=== PATIENT | female | born 1945 | race Caucasian/White ===

== ENCOUNTER → 2021-03-23 14:38 | Outpatient (BNVA) | payer MEDICARE, OTHER, SELFPAY | PROVIDERS: PCP Internal Medicine | DX: N39.0 Urinary tract infection, site not specified (principal); R33.9 Retention of urine, unspecified; Q61.3 Polycystic kidney, unspecified; Z94.0 Kidney transplant status | CPT/HCPCS: 51798; 99212 ==

== ENCOUNTER → 2022-03-22 14:08 | Outpatient (BNVA) | payer MEDICARE, OTHER, SELFPAY | PROVIDERS: PCP Internal Medicine; Visit Provider Urology | DX: N32.81 Overactive bladder (principal); N95.2 Postmenopausal atrophic vaginitis; N39.0 Urinary tract infection, site not specified; Q61.3 Polycystic kidney, unspecified; Z94.0 Kidney transplant status | CPT/HCPCS: 51798; 99212 ==

== ENCOUNTER 2023-03-23 11:06 | Outpatient (AMB) | payer MEDICARE, OTHER, SELFPAY ==
--- NOTE | 2023-03-23 11:08 | A.OFFVIS_ITS ---
Intake Intake Visit Reasons: 1 yr follow up Intake Note: Patient presents today for a 1 year follow-up on Overactive Bladder: Meds- Toviaz, Estradiol & Nitrofurantoin Allergies to Antibiotic- No Known Allergies Blood Thinner- None Hanger Off Required: No Accompanied by: Self / Same As Patient Allergies No Known Allergies Allergy (Verified 03/23/23 11:08) Medication List - Last Reconciled 03/23/23 by Krzysztof Ashby MD brimonidine 0.15% 1 drp ophthalmic (eye) BID cinacalcet 90 mg PO DAILY citalopram 20 mg PO DAILY dorzolamide-timolol 22.3-6.8 mg/mL 1 drp ophthalmic (eye) BID estradiol 0.01%(0.1mg/gram) (Estrace) pea sized amount to urethra 3x week ferrous sulfate 27 mg PO DAILY fesoterodine ER (Toviaz) 8 mg PO DAILY 90 days latanoprost 0.005% 1 drp ophthalmic (eye) BEDTIME lovastatin 20 mg PO DAILY multivitamin 1 tab PO DAILY mycophenolate mofetil 250 mg PO nitrofurantoin macrocrystal 50 mg PO BEDTIME 90 days tacrolimus 4 mg PO BID HPI HPI Comments History of Present Illness Details Belkis is here for follow-up. She has a h/o adult polycystic disease, and is s/p live kidney transplant 06/08/2010. She is on nitrofurantoin 50 mg daily, suppressive antibiotic therapy due to recurrent UTIs. Also prescribed and uses the vaginal estrogen cream. She states she has been doing well. She denies any irritative voiding symptoms. Denies dysuria, denies hematuria. She is prescribed Toviaz 8 mg which she takes as needed for overactive bladder symptoms of urgency and urge incontinence. She reports the medication is working well for her however she has significant dry mouth, today she states that she has also noted drowsiness while on the medication. In regard to her transplant she is on immunosuppressive medications and follows with Nephrology and states that her labs have been stable. I have discussed today that I want to try a different medication that is in the separate class and should not cause the symptoms noted above. Myrbetriq was my 1st choice but the patient states she has already tried this medication and did work well to relieve her bladder symptoms. I will arrange for samples of gemtesa 75 mg daily. Will continue Estrace cream and daily nitrofurantoin 50 mg. Follow-up in 6 months [facility] Medical History Urinary retention Social History Patient Tobacco Use Status: Never used Tobacco Review of Systems Const All systems reviewed & are unremarkable except as noted in HPI and below Reports no additional complaints Eyes Reports no additional complaints ENT Denies neck pain Card Denies leg edema Resp Denies cough GI Denies constipation Reports no additional complaints Musc Reports no additional complaints and Denies neck pain Skin/Breast Denies rash and Denies unusual bruising Neuro Reports no additional complaints Psych Reports no additional complaints Endo Reports no additional complaints Tye/Lymph Reports no additional complaints Aller/Immun Reports no additional complaints Physical Exam Const General: cooperative, healthy appearing and no acute distress Orientation/consciousness: patient oriented x3 HEENT Head: Yes normal to inspection, Yes normocephalic and Yes atraumatic Eyes Conjunctivae: conjunctivae normal Neck Neck: Yes normal visual inspection and Yes trachea midline Chest Chest palpation & inspection: normal inspection of the chest Resp Effort & Inspection: normal respiratory effort GI Inspection: Yes normal to inspection Neuro General: patient oriented x3 Psych Appearance: grossly normal Results AMB Urinalysis, Automated UA Leukoctes 500 Kevin/uL Last Edit by ADELINA Huang on 03/23/23 12:12 3+ Misha Landeros 03/23/23 12:12 UA Nitrite Negative Last Edit by ADELINA Huang on 03/23/23 12:12 UA Urobilinogen 0.2 mg/dL Last Edit by ADELINA Huang on 03/23/23 12:1 2 UA Protein 15 mg/dL Last Edit by ADELINA Huang on 03/23/23 12:12 UA pH 6.0 Last Edit by ADELINA Huang on 03/23/23 12:12 UA Blood 0 Darian/uL Last Edit by ADELINA Huang on 03/23/23 12:12 UA Specific [place] 1.025 Last Edit by ADELINA Huang on 03/23/23 12: 12 UA Ketone Negative Last Edit by ADELINA Huang on 03/23/23 12:12 UA Bilirubin 0 mg/dL Last Edit by JAIRON HuagnA on 03/23/23 12:12 UA Glucose 0 mg/dL Last Edit by ADELINA Huang on 03/23/23 12:12 Results Reviewed Results Reviewed: Laboratory Last Values Urine pH (Auto) 6.0 03/23/23 12:09 Specific [place] (Auto) 1.025 03/23/23 12:09 Urine Protein (Auto) 15 mg/dL 03/23/23 12:09 Glucose (UA)(Auto) 0 mg/dL 03/23/23 12:09 Urine Ketones (Auto) Negative 03/23/23 12:09 Urine Blood (Auto) 0 Darian/uL 03/23/23 12:09 Urine Nitrite (Auto) Negative 03/23/23 12:09 Urine Bilirubin (Auto) 0 mg/dL 03/23/23 12:09 Urine Urobilinogen (Auto) 0.2 mg/dL 03/23/23 12:09 Leukocyte Esterase (Auto) 500 Kevin/uL 03/23/23 12:09 Assessment & Plan Assessment & Plan (1) OAB (overactive bladder): Code(s): N32.81 - Overactive bladder (2) Vaginal atrophy: Code(s): N95.2 - Postmenopausal atrophic vaginitis (3) Recurrent UTI: Code(s): N39.0 - Urinary tract infection, site not specified (4) Kidney transplant recipient: Code(s): Z94.0 - Kidney transplant status (5) Polycystic kidney disease: Code(s): Q61.3 - Polycystic kidney, unspecified Plan I will arrange for samples of gemtesa 75 mg daily. Will continue Estrace cream and daily nitrofurantoin 50 mg. Follow-up in 6 months Orders: Orders AMB Urinalysis Automated Today Z13.9 - Encounter for screening, unspecified Patient Instructions: The patient had an opportunity to ask questions regarding treatment plan. All questions were answered. Laboratory studies were discussed and reviewed in detail. No major barriers to understanding were identified. The patient expressed understanding and agreement with the above treatment plan. The patient is aware they should contact our office by phone for worsening of their current condition or the appearance of new symptoms. Compliance is encouraged with any medications and followup testing that is ordered. It is a privilege to be allowed the opportunity to participate in the urologic care of your patient. If you have any questions or concerns regarding treatment for the above conditions please do not hesitate to contact me. The office telephone contact is [phone]. This note is constructed in part using voice recognition software. While every effort has been made to ensure accuracy family nurse practitioner errors may have been included. Yours sincerely, Krzysztof Ashby MD Coding Level of Care Code Est Pt Level 4 (58225) Diagnoses OAB (overactive bladder) N32.81 Vaginal atrophy N95.2 Recurrent UTI N39.0 Kidney transplant recipient Z94.0 Polycystic kidney disease Q61.3
== END 2023-03-23 12:25 | disposition home or self-care (01) ==
PROVIDERS: PCP Internal Medicine; Visit Provider Urology
DX: N32.81 Overactive bladder (principal); N95.2 Postmenopausal atrophic vaginitis; N39.0 Urinary tract infection, site not specified; Z94.0 Kidney transplant status; Q61.3 Polycystic kidney, unspecified; Z13.9 Encounter for screening, unspecified
CPT/HCPCS: 99214

== ENCOUNTER → 2023-03-23 11:06 | Outpatient (BNVA) | payer MEDICARE, OTHER, SELFPAY | PROVIDERS: Visit Provider Urology | DX: N32.81 Overactive bladder (principal); N95.2 Postmenopausal atrophic vaginitis; N39.0 Urinary tract infection, site not specified; Q61.3 Polycystic kidney, unspecified; Z94.0 Kidney transplant status | CPT/HCPCS: 81003; 99212 ==

== ENCOUNTER 2024-08-25 10:03 | Outpatient (AMB) | payer MEDICARE, OTHER, SELFPAY ==
--- OUTSIDE RECORDS SUMMARY | 2024-08-25 11:12 | XMS_ITS | Encounter Summary ---
Author Organization [facility], Address [address] [place] [address] Phone Care Team Providers Care Head Of Sales Promotion Name Role Phone Stacy Awan MD Primary Care Provider [phone] Reason for Visit * Reason Comments Med Refill Encounter Details Date Type Department Care Team (Late st Contact Info) Description 03/29/2021 Refill [facility] [address] [place] [phone] Romeo Dozier PA Social History Tobacco Use Types Packs/Day Years Used Date Smoking Tobacco: Never Alcohol Use Standard Drinks/Week Comments Yes 0 (1 standard drink = 0.6 oz pure alcohol) Alcoholic Drinks/day: Occasional social drink Comments Unknown Sex and Gender Information Value Date Recorded Sex Assigned at Not on file Legal Sex Female 4:34 PM EST Gender Identity Not on file Sexual Orientation Not on file documented as of this encounter Plan of Treatment Upcoming Encounters Date Type Department Care Team (Late st Contact Info) Description 09/05/2024 10:00 AM EDT Office Visit [facility] [address] [place] [phone] Edgar Aguilar MD [address] [place] [address] [place] [phone] documented as of this encounter Visit Diagnoses Not on filedocumented in this encounter Care Teams Head Of Sales Promotion Relationship Specialty Start Date End Date Stacy Awan MD [address] [place] [id number] PCP - General Internal Medicine 01/23/23 documented as of this encounter
--- OUTSIDE RECORDS SUMMARY | 2024-08-25 11:12 | XMS_ITS | Encounter Summary ---
Author Organization [facility] Address [address] [place] [address] Care Team Providers Care Chicken Buyer Name Role Phone Ant Brewer NP Primary Care Provider [phone] Encounter Details Date Type Department Care Team (Late st Contact Info) Description 07/09/2024 Lab Requisition [facility] - Main Lab [address] [facility] [place] [phone] Ant Brewer NP [facility] [address] [place] [address] Urinary tract infection, site not specified Social History Tobacco Use Types Packs/Day Years Used Date Smoking Tobacco: Former Smokeless Tobacco: Never Alcohol Use Standard Drinks/Week Comments Yes 0 (1 standard drink = 0.6 oz pur e alcohol) Comments Unknown Sex and Gender Information Value Date Recorded Sex Assigned at Not on file Legal Sex Female 12:44 AM EST Gender Identity Not on file Sexual Orientation Not on file documented as of this encounter Plan of Treatment Not on file documented as of this encounter Procedures Procedure Name Priority Date/Time Associated Diagnosis Comments URINALYSIS WITH REFLEX MICROSCOPIC AND CULTURE Routine 07/08/2024 2:00 PM EST Urinary tract infection, site not specified [place] URINE CULTURE TUBE Routine 07/08/2024 2:00 PM EST Urinary tract infection, site not specified URINALYSIS WITH REFLEX MICROSCOPIC AND CULTURE Routine 07/08/2024 2:00 PM EST Urinary tract infection, site not specified CULTURE URINE Routine 07/08/2024 2:00 PM EST Urinary tract infection, site not specified documented in this encounter Results * (ABNORMAL) Culture urine (07/08/2024 2:00 PM EST) Culture, Urine >100,000 CFU/mL Escherichia coli(A) JENNY 07/11/2024 9:49 AM EST [facility] Urine Urine specimen obtained by clean catch procedure / Unknown 07/08/2024 2:00 PM EST 07/09/2024 10:17 AM EST Narrative Organism Antibiotic Method Susceptibility Escherichia coli Amoxicillin/Clavulanate JENNY 8 ug/ml: Susceptible Escherichia coli Ampicillin/Sulbactam JENNY 16 ug/ml: Intermediate Escherichia coli Piperacillin/Tazobactam JENNY <=4 ug/ml: Susceptible Escherichia coli Cefazolin (Urine) JENNY 2 ug/ml: Susceptible Escherichia coli Cefoxitin JENNY <=4 ug/ml: Susceptible Escherichia coli Ceftazidime JENNY <=0.5 ug/ml: Susceptible Escherichia coli Ceftriaxone JENNY <=0.25 ug/ml: Susceptible Escherichia coli Cefepime JENNY <=0.12 ug/ml: Susceptible Escherichia coli Meropenem JENNY <=0.25 ug/ml: Susceptible Escherichia coli Amikacin JENNY 2 ug/ml: Susceptible Escherichia coli Gentamicin JENNY <=1 ug/ml: Susceptible Escherichia coli Ciprofloxacin JENNY 0.5 ug/ml: Intermediate Escherichia coli Levofloxacin JENNY 1 ug/ml: Intermediate Escherichia coli Nitrofurantoin JENNY <=16 ug/ml: Susceptible Escherichia coli Trimethoprim/Sulfamethoxazole JENNY <=20 ug/ml: Susceptible Ant Brewer NP LAB MICROBIOLOGY - GENERAL ORDER MELISSA Final Result [facility] [address] [place] [address], [place] [phone] * (ABNORMAL) Urinalysis with reflex microscopic and culture (07/08/2024 2:00 PM EST) Pathologist [facility] [place] Specific [place] Urine 1.009 1.003 - 1.030 LAB URINALYSIS - AUTOMATED METHOD 07/09/2024 10:17 AM EST [facility] pH, Urine 6.0 5.0 - 8.0 pH LAB URINALYSIS - AUTOMATED METHOD 07/09/2024 10:17 AM [facility] Leukocytes, Urine Large(A) Negative LAB URINALYSIS - AUTOMATED METHOD 07/09/2024 10:17 AM [facility] Nitrite, Urine Negative Negative LAB URINALYSIS - AUTOMATED METHOD 07/09/2024 10:17 AM [facility] Protein, Urine Trace <=Trace mg/dL LAB URINALYSIS - AUTOMATED METHOD 07/09/2024 10:17 AM [facility] Glucose, Urine Negative Negative mg/dL LAB URINALYSIS - AUTOMATED METHOD 07/09/2024 10:17 AM [facility] Ketones, Urine Negative Negative mg/dL LAB URINALYSIS - AUTOMATED METHOD 07/09/2024 10:17 AM [facility] Urobilinogen, Urine 0.2 0.2 - 1.0 mg/dL LAB URINALYSIS - AUTOMATED METHOD 07/09/2024 10:17 AM [facility] Bilirubin, Urine Negative Negative LAB URINALYSIS - AUTOMATED METHOD 07/09/2024 10:17 AM [facility] Blood, Urine Negative Negative LAB URINALYSIS - AUTOMATED METHOD 07/09/2024 10:17 AM [facility] RBC, Urine 1.9 0 - 4 /HPF LAB URINALYSIS - AUTOMATED METHOD 07/09/2024 10:17 AM [facility] WBC, Urine 186.4(H) 0 - 4 /HPF LAB URINALYSIS - AUTOMATED METHOD 07/09/2024 10:17 AM [facility] Squamous Epithelial, Urine 12 0 - 60 /LPF LAB URINALYSIS - AUTOMATED METHOD 07/09/2024 10:17 AM [facility] Bacteria, Urine Many(A) Negative /HPF LAB URINALYSIS - AUTOMATED METHOD 07/09/2024 10:17 AM [facility] Hyaline Casts, Urine 0.41 0 - 3 /LPF LAB URINALYSIS - AUTOMATED METHOD 07/09/2024 10:17 AM EST [facility] Urine Urine specimen obtained by clean catch procedure / Unknown 07/08/2024 2:00 PM EST 07/09/2024 9:25 AM EST us Ant Brewer NP LAB URINE ORDERABLES Final Resul t Performing Organization Address City/[facility]/ZIP Co de Phone Number [facility] [address] [place] [address], [place] [phone] * Pearson urine culture tube (07/08/2024 2:00 PM EST) Extra Tube Hold for add-ons. 07/09/2024 11:02 AM EST [facility] Comment:Auto resulted. Urine Urine specimen obtained by clean catch procedure / Unknown 07/08/2024 2:00 PM EST 07/09/2024 9:25 AM EST us Ant Brewer NP LAB URINE ORDERABLES Final Resul t Performing Organization Address [facility] Co de Phone Number [facility] [address] [place] [address], [place] [phone] documented in this encounter Visit Diagnoses Diagnosis Urinary tract infection, site not specified documented in this encounter Care Teams Chicken Buyer Relationship Specialty Start Date End Date Ant Brewer NP [facility] [address] [place] [address] PCP - General Nurse Practitioner 07/09/24 documented as of this encounter
--- OUTSIDE RECORDS SUMMARY | 2024-08-25 11:12 | XMS_ITS | Encounter Summary ---
Author Organization [facility], Address [address] [place] [address] Phone Care Team Providers Care Automotive Electrical Helper Name Role Phone Stacy Awan MD Primary Care Provider [phone] Encounter Details Date Type Department Care Team (Late st Contact Info) Description 02/02/2022 Documentation Only [facility], [address] [place] [address] Edgar Aguilar MD [address] [place] [address] [place] [address] Social History Tobacco Use Types Packs/Day Years [...] Visit [facility] [address] [place] [address] Edgar Aguilar MD [address] [place] [address] [place] [address] documented as of this encounter Visit Diagnoses Not on filedocumented in this encounter Care Teams Automotive Electrical Helper Relationship Specialty Start Date End Date Stacy Awan MD [address] [place] [address] PCP - General Internal Medicine 01/23/23 documented as of this encounter
--- OUTSIDE RECORDS SUMMARY | 2024-08-25 11:12 | XMS_ITS | Encounter Summary ---
Author Organization [facility], Address [address] [place] [address] Phone Care Team Providers Care Privacy Analyst Name Role Phone Stacy Awan MD Primary Care Provider [phone] Reason for Visit * Reason Comments Med Refill Encounter Details Date Type Department Care Team (Late st Contact Info) Description 06/29/2022 Refill [facility] [address] [place] [phone] Romeo Dozier PA Social History Tobacco Use [...] Visit [facility] [address] [place] [phone] Edgar Aguilar MD [address] [place] [address] [place] [phone] documented as of this encounter Visit Diagnoses Not on filedocumented in this encounter Care Teams Privacy Analyst Relationship Specialty Start Date End Date Stacy Awan MD [address] [place] [id number] PCP - General Internal Medicine 01/23/23 documented as of this encounter
--- OUTSIDE RECORDS SUMMARY | 2024-08-25 11:12 | XMS_ITS | Encounter Summary ---
Author Organization [facility], Address [address] [place] [address] Phone Care Team Providers Care Offset Platemaker Name Role Phone Stacy Awan MD Primary Care Provider [phone] Encounter Details Date Type Department Care Team (Late st Contact Info) Description 02/05/2024 Documentation Only [facility], [address] [place] [address] [place] [address] [place] [address] Social History Tobacco Use Types Packs/Day Years [...] Visit [facility] [place] [address] [place] [address] Edgar Aguilar MD [address] [facility] [place] [address] documented as of this encounter Visit Diagnoses Not on filedocumented in this encounter Care Teams Offset Platemaker Relationship Specialty Start Date End Date Stacy Awan MD [address] [place] [address] PCP - General Internal Medicine 01/23/23 documented as of this encounter
--- OUTSIDE RECORDS SUMMARY | 2024-08-25 11:12 | XMS_ITS | Clinical Summary ---
Author Organization [address] Address [address] [place] [address] Phone Care Team Providers Care Lifestyle Block Farmer Name Role Phone Ant Brewer NP Primary Care Provider [phone] Encounters Date Type Department Care Team Description 07/09/2024 Lab Requisition [facility] - Main Lab [address] [place] [id number] Ant Brewer NP Urinary tract infection, site not specified from Last 3 Months Surgical History Surgery Date Site/Laterality Comments SALPINGOOPHORECTOMY Right PROCEDURE: [facility] LAPAROSCOPY W/RMVL ADNEXAL STRUCTURES; COMMENT: cystectomy OTHER SURGICAL HISTORY 2009 PROCEDURE: [facility] RENAL ALTRNSPLJ IMPLTJ GRF W/O RECORDS MANAGEMENT ASSISTANT NEPHRECTOMY; COMMENT: X2 BACK SURGERY 2008 PROCEDURE: HISTORICAL BACK SURGERY COLONOSCOPY 08/25/05 PROCEDURE: HISTORICAL COLONOSCOPY; COMMENT: tics OTHER SURGICAL HISTORY 09/08/15 PROCEDURE: COLON CA SCRN NOT HI RSK IND; COMMENT: tics; would not repeat OTHER SURGICAL HISTORY Bilateral PROCEDURE: HISTORICAL GLAUCOMA OTHER SURGICAL HISTORY PROCEDURE: [facility] PERITONEAL DIALYSIS PLAN DOCUMENTED OTHER SURGICAL HISTORY PROCEDURE: MRI ABD W/WO CONTRAST; COMMENT: MRA of brain yearly Medical History Medical History Date Comments Spinal stenosis, lumbar amanda on, without neurogenic claudication 11/19/2007 DX:Spinal stenosis, светлана mbar region, without neurogenic claudication Polycystic kidney disease DX:Logan ycystic kidney disease Family History Medical History Relation Name Comments Hypertension Brother 1 Other: Other Brother 1 polycystic kidn ey disease, dialysis Other: Other Brother 2 polycystic Kidn ey disease, kidney transplant mental issues Other: Other Brother 3 Other: Other Mother polycystic kidn ey disease Breast cancer Neg Hx Colon cancer Neg Hx Ovarian cancer Neg Hx Relation Name Status Comments Brother 1 2,ONE , POLYSCYSTIC KIDNEY Brother 2 Brother 3 Alive Father NOT SURE Mother CRF Social History Tobacco Use Types Packs/Day Years Used Date Smoking Tobacco: Former Smokeless Tobacco: Never Alcohol Use Standard Drinks/Week Comments Yes 0 (1 standard drink = 0.6 oz pur e alcohol) Comments Unknown Sex and Gender Information Value Date Recorded Sex Assigned at Not on file Legal Sex Female 12:44 AM EST Gender Identity Not on file Sexual Orientation Not on file Obstetrics History Plan of Treatment Health Maintenance Due Date Last Done Comments Pneumococcal Vaccine: 50+ Years (3 of 3 - PCV) 09/08/2015 09/07/2014, 06/07/2007 RSV Immunization Patients 60+ Years Old (1 - 1-dose 75+ series) 01/30/2019 Cholesterol Screening (Lipid Panel) 05/14/2022 Depression Screening 05/14/2022 Falls Risk Assessment 05/14/2022 Medicare Annual Wellness Visit 05/14/2022 Osteoporosis Screening (Bone Density Screening) 05/14/2022 Social Influencers of Health Screening 05/14/2022 COVID-19 Vaccine ( season) 2024 08/29/2021, 01/28/2021, 08/02/2020, Additional history exists Influenza Vaccine (#1) 2024 , 04/04/2021, 02/17/2020, Additional history exists DTaP,Tdap,and Td Vaccines (2 - Td or Tdap) 11/15/2026 11/15/2016 Hepatitis B Vaccines Completed 04/24/2005, 11/17/2004, 10/20/2004 Zoster Vaccines Completed 03/25/2019, 09/28/2018 HIB Vaccines Aged Out No longer eligi ble based on patient's age to complete this topic HPV Vaccines Aged Out No longer eligi ble based on patient's age to complete this topic Hepatitis A Vaccines Aged Out No long er eligible based on patient's age to complete this topic IPV Vaccines Aged Out No longer eligi ble based on patient's age to complete this topic MMR Vaccines Aged Out No longer eligi ble based on patient's age to complete this topic Meningococcal ACWY Vaccine Aged Out N o longer eligible based on patient's age to complete this topic Meningococcal B Vacine Aged Out No lo nger eligible based on patient's age to complete this topic RSV Immunization Patients Under 20 months Aged Out No longer eligible based on patient's age to complete this topic Varicella Vaccines Aged Out No longer eligible based on patient's age to complete this topic Procedures Procedure Name Priority Date/Time Associated Diagnosis [...] EST Urinary tract infection, site not specified from Last 3 Months Results * (ABNORMAL) Urinalysis with reflex microscopic and culture (07/08/2024 2:00 PM EST) Specific [place] Urine 1.009 1.003 - 1.030 LAB URINALYSIS - AUTOMATED METHOD 07/09/2024 10:17 AM [facility] pH, Urine 6.0 5.0 - 8.0 pH LAB URINALYSIS - AUTOMATED METHOD 07/09/2024 10:17 AM [facility] Leukocytes, Urine Large(A) Negative LAB URINALYSIS - AUTOMATED METHOD 07/09/2024 10:17 AM [facility] Nitrite, Urine Negative Negative LAB URINALYSIS - AUTOMATED METHOD 07/09/2024 10:17 AM [facility] Protein, Urine Trace <=Trace mg/dL LAB URINALYSIS - AUTOMATED METHOD 07/09/2024 10:17 AM [facility] Glucose, Urine Negative Negative mg/dL LAB URINALYSIS - AUTOMATED METHOD 07/09/2024 10:17 AM [facility] Ketones, Urine Negative Negative mg/dL LAB URINALYSIS - AUTOMATED METHOD 07/09/2024 10:17 AM [facility] Urobilinogen, Urine 0.2 0.2 - 1.0 mg/dL LAB URINALYSIS - AUTOMATED METHOD 07/09/2024 10:17 AM [facility] Bilirubin, Urine Negative Negative LAB URINALYSIS - AUTOMATED METHOD 07/09/2024 10:17 AM [facility] Blood, Urine Negative Negative LAB URINALYSIS - AUTOMATED METHOD 07/09/2024 10:17 AM [facility] RBC, Urine 1.9 0 - 4 /HPF LAB URINALYSIS - AUTOMATED METHOD 07/09/2024 10:17 AM [facility] WBC, Urine 186.4(H) 0 - 4 /HPF LAB URINALYSIS - AUTOMATED METHOD 07/09/2024 10:17 AM [facility] Squamous Epithelial, Urine 12 0 - 60 /LPF LAB URINALYSIS - AUTOMATED METHOD 07/09/2024 10:17 AM [facility] Bacteria, Urine Many(A) Negative /HPF LAB URINALYSIS - AUTOMATED METHOD 07/09/2024 10:17 AM [facility] Hyaline Casts, Urine 0.41 0 - 3 /LPF LAB URINALYSIS - AUTOMATED METHOD 07/09/2024 10:17 AM [facility] Urine Urine specimen obtained by clean catch procedure / Unknown 07/08/2024 2:00 PM EST 07/09/2024 9:25 AM EST us Ant Breewr NP LAB URINE ORDERABLES Final Resul t [facility] [address] [place] [address], * Pearson urine culture tube (07/08/2024 2:00 PM EST) Extra Tube Hold for add-ons. 07/09/2024 11:02 AM EST [facility] Comment:Auto resulted. Urine Urine specimen obtained by clean catch procedure / Unknown 07/08/2024 2:00 PM EST 07/09/2024 9:25 AM EST us Ant Brewer NP LAB URINE ORDERABLES Final Resul t [facility] [address] [place] [address], * (ABNORMAL) Culture urine (07/08/2024 2:00 PM EST) Culture, Urine >100,000 CFU/mL Escherichia coli(A) JENNY 07/11/2024 9:49 AM EST [facility] Urine Urine specimen obtained by clean [...] Escherichia coli Trimethoprim/Sulfamethoxazole JENNY <=20 ug/ml: Susceptible us Ant Brewer NP LAB MICROBIOLOGY - GENERAL ORDER MELISSA Final Result [facility] [address] [place] [address], [place] [phone] from Last 3 Months Insurance MEDICARE Care Teams Lifestyle Block Farmer Relationship Specialty Start Date End Date Ant Brewer NP [facility] [address] [place] [address] PCP - General Nurse Practitioner 07/09/24
--- OUTSIDE RECORDS SUMMARY | 2024-08-25 11:12 | XMS_ITS | Clinical Summary ---
Author Organization [facility], Address [address] [place] [address] [place] [address] Phone Care Team Providers Care Navigating Officer Name Role Phone Stacy Awan MD Primary Care Provider [phone] Allergies No known active allergies Medications brimonidine (ALPHAGAN P) 0.1 % solution Administer 1 drop into both eyes 2 (two) times a day Active dorzolamide-timolol (COSOPT) 22.3-6.8 MG/ML ophthalmic solution 05/27/20 19 Active estradiol (ESTRACE) 0.1 MG/GM vaginal cream Insert into the vagina 3 (three) times a week Active ferrous sulfate 325 (65 Fe) MG EC tablet Take 325 mg by mouth Active latanoprost (XALATAN) 0.005 % ophthalmic solution 05/29/20 19 Active nitrofurantoin (MACRODANTIN) 50 MG capsule Take 1 capsule by mouth at bed time Active Cholecalciferol (VITAMIN D3) 25 MCG (1000 UT) capsule Take 1 capsule by mouth 1 (one) time each day Active Multiple Vitamins-Minerals (MULTIVITAMIN ADULT PO) Take 1 capsule by mouth 1 (one) time each day Active lovastatin (MEVACOR) 20 MG tablet Take 1 tablet (20 mg total) by mouth 1 (one) time each day 90 tablet 3 09/20/19 24 Active cinacalcet (SENSIPAR) 90 MG tablet TAKE 1 TABLET BY MOUTH EVERY DAY 30 tablet 11 11/30/19 24 Active cetirizine (ZyrTEC) 10 MG tablet Take 1 tablet (10 mg total) by mouth 1 (one) time each day 90 tablet 3 01/14/20 24 Active Gemtesa 75 MG tablet Take 1 tablet by mouth 1 (one) time each day 01/01/20 24 Active amoxicillin (AMOXIL) 500 MG capsule Take 4 tablets 1 hour prior to dental work 4 capsule 05/15/20 24 Active tacrolimus (PROGRAF) 1 MG capsuleIndications:C hronic kidney disease, stage 2 (mild),History of renal transplant,History of immunosuppressive therapy Take 1 capsule (1 mg total) by mouth in the morning and 1 capsule (1 mg total) in the evening. 180 capsule 3 06/23/19 25 026 Active mycophenolate (CELLCEPT) 250 MG capsule TAKE 1 CAPSULE BY MOUTH IN THE MORNING AND 1 CAPSULE IN THE EVENING. 180 capsule 3 07/10/19 25 Active tacrolimus (Prograf) 0.5 MG capsule Take 1 capsule (0.5 mg total) by mouth 1 (one) time each day in the morning 90 capsule 3 07/22/19 25 026 Active citalopram (CeleXA) 20 MG tablet Take 1 tablet (20 mg total) by mouth 1 (one) time each day 90 tablet 3 08/26/19 25 026 Active citalopram (CeleXA) 20 MG tablet Take 1 tablet (20 mg total) by mouth 1 (one) time each day 90 tablet 3 07/10/19 24 025 Discontin ued(Reord er (does not appear on AVS)) Active Problems Problem Noted Date Diagnosed Date Frequent fecal incontinence 06/24/2021 Stage 3a chronic kidney disease 12/26/2019 Overview (06/14/2020): Update for Diagnosis Load 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 06/21 Chronic kidney disease, stage 2 (mild) 0 History of immunosuppressive therapy 06/21/2019 History of renal transplant 06/21/2019 Hyperlipidemia 06/21/2019 Intracranial aneurysm 04/24/2008 Overview (06/21/2019): Gets mra every 2 years per pt and sees dr bowman for that MRA by dr villeda since people with pckd have aneurysm.pt has 3 and she has been referd to [facility] for coiling 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 Diverticulitis of colon 12/26/2005 Iron deficiency anemia 11/23/2005 Overview (06/21/2019): On epo shots by dr graham Polycystic kidney, unspecified type 11/23/2005 Overview (06/21/2019): S/p kidney transplant Resolved Problems Problem Noted Date Diagnosed Date Resolved Date Mild depression 03/25/2021 06/22/2021 Essential hypertension 06/26/201906/17 Encounters Date Type Department Care Team Description 07/22/2024 [facility] [address] [place] [address] Juanita Stevens, RN tacro dose change 07/14/2024 [facility] [address] [place] [address] Sarah Westfall MA 07/09/2024 [facility] [address] [place] [address] Romeo Dozier PA 06/23/2024 [facility] [address] [place] [address] Juanita Stevens, MARIO tacro dose adjustment 06/13/2024 10:45 AM EST Office [facility] [address] [place] [address] Romeo Dozier PA History of renal transplant (Primary Dx); History of immunosuppressive therapy; Stage 3a chronic kidney disease (HCC) 06/13/2024 [facility] [address] [place] [address] Juanita Stevens, RN rpt tacro level from Last 3 Months Immunizations Name Administration Dates Next Due Hep B, Unspecified 04/24/2005,11/17/2004, 005 Hepatitis B 04/24/2005,11/17/2004,10/20/2004 Influenza Split High Dose Pr eservative Free IM 02/17/2020,03/20/2018 Influenza TIV (IM) 03/09/2015,04/20/2014 Influenza, MDCK, Quadrivalen t, with preservative 03/01/2017 Moderna SARS-COV-2 08/26/2021 Pfizer SARS-COV-2 08/29/2021, 1,08/02/2020,07/11 Pneumococcal Polysaccharide 03/04/2015, 5,06/07/2007 Shingrix 03/25/2019,09/28/2018 Tdap 11/15/2016 Zoster 11/28/2018,09/12/2018 Family History Medical History Relation Comments Autosomal Dominant Polycystic Kidney Disease Mot her Heart disease Mother Hypertension Mother Kidney disease Mother pkd Stroke Mother Autosomal Dominant Polycystic Kidney Disease Sib ling 1 Diabetes Sibling 1 Kidney disease Sibling 1 3 siblings Kidney disease Sibling 2 3 pkd Autosomal Dominant Polycystic Kidney Disease Sib ling 3 Relation Status Comments Father Mother Sibling 1 Sibling 2 Sibling 3 Social History Tobacco Use Types Packs/Day Years Used Date Smoking Tobacco: Never Tobacco Cessation:Counseling Given: Not Answered Alcohol Use Standard Drinks/Week Comments Yes 0 (1 standard drink = 0.6 oz pure alcohol) Alcoholic Drinks/day: Occasional social drink Comments Unknown Sex and Gender Information Value Date Recorded Sex Assigned at Not on file Legal Sex Female 4:34 PM EST Gender Identity Not on file Sexual Orientation Not on file Last Filed Vital Signs Vital Sign Reading Time Taken Comments Blood Pressure 102/62 06/13/2024 11:04 AM EST Pulse 77 04/22/2019 12:00 PM EST Temperature - - Respiratory Rate 16 04/22/2019 12:0 0 PM EST Oxygen Saturation - - Inhaled Oxygen Concentration - - Weight 67.5 kg (148 lb 12.8 oz) 024 10:30 AM EDT Height 162.6 cm (5' 4 ) 02/19/2024 10:3 0 AM EDT Body Mass Index 25.54 02/19/2024 10:30 AM EDT Plan of Treatment Upcoming Encounters Date Type Department Care Team (Late st Contact Info) Description 09/05/2024 10:00 AM EDT [facility] [address] [place] [address] Edgar Aguilar MD [address] [place] [address] [place] [id number] Health Maintenance Due Date Last Done Comments Pneumococcal Vaccine: 65+ Years (3 of 3 - PCV) 03/04/2016 03/04/2015, 09/07/2014, 06/07/2007 Influenza Vaccine (#1) 2024 0, 03/20/2018, 03/01/2017, Additional history exists Hepatitis B Vaccine Aged Out 04/24/2005, 04/24/2005, 11/17/2004, Additional history exists No longer eligible based on patient's age to complete this topic Procedures Procedure Name Priority Date/Time Associated Diagnosis Comments TACROLIMUS LEVEL Routine 07/14/2024 12:1 7 PM EST Chronic kidney disease, stage 2 (mild) History of renal transplant History of immunosuppressive therapy TACROLIMUS LEVEL Routine 06/27/2024 10:1 3 AM EST Chronic kidney disease, stage 2 (mild) History of renal transplant History of immunosuppressive therapy TACROLIMUS LEVEL Routine 06/17/2024 11:1 1 AM EST History of renal transplant History of immunosuppressive therapy Stage 3a chronic kidney disease (HCC) REFLEXIVE URINE CULTURE (HC) Routine 06/09/2024 2:41 PM EST MYCOPHENOLIC ACID AND METABO. 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, not otherwise specified (HCC) Vitamin D deficiency, not otherwise specified Other iron deficiency anemia Chronic gout with tophus, not otherwise specified Hypomagnesemia Poor glycemic control Proteinuria, not otherwise specified TACROLIMUS LEVEL 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, not otherwise specified (HCC) Vitamin D deficiency, not otherwise specified Other iron deficiency anemia Chronic gout with tophus, not otherwise specified Hypomagnesemia Poor glycemic control Proteinuria, not otherwise specified PROTEIN / CREATININE RATIO, URINE 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, not otherwise specified (HCC) Vitamin D deficiency, not otherwise specified Other iron deficiency anemia Chronic gout with tophus, not otherwise specified Hypomagnesemia Poor glycemic control Proteinuria, not otherwise specified URINALYSIS, COMPLETE 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, not otherwise specified (HCC) Vitamin D deficiency, not otherwise specified Other iron deficiency anemia Chronic gout with tophus, not otherwise specified Hypomagnesemia Poor glycemic control Proteinuria, not otherwise specified HEMOGLOBIN A1C 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, not otherwise specified (HCC) Vitamin D deficiency, not otherwise specified Other iron deficiency anemia Chronic gout with tophus, not otherwise specified Hypomagnesemia Poor glycemic control Proteinuria, not otherwise specified ALT 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, not otherwise specified (HCC) Vitamin D deficiency, not otherwise specified Other iron deficiency anemia Chronic gout with tophus, not otherwise specified Hypomagnesemia Poor glycemic control Proteinuria, not otherwise specified AST 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, not otherwise specified (HCC) Vitamin D deficiency, not otherwise specified Other iron deficiency anemia Chronic gout with tophus, not otherwise specified Hypomagnesemia Poor glycemic control Proteinuria, not otherwise specified CREATINE KINASE 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, not otherwise specified (HCC) Vitamin D deficiency, not otherwise specified Other iron deficiency anemia Chronic gout with tophus, not otherwise specified Hypomagnesemia Poor glycemic control Proteinuria, not otherwise specified LIPID PANEL 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, not otherwise specified (HCC) Vitamin D deficiency, not otherwise specified Other iron deficiency anemia Chronic gout with tophus, not otherwise specified Hypomagnesemia Poor glycemic control Proteinuria, not otherwise specified MAGNESIUM 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, not otherwise specified (HCC) Vitamin D deficiency, not otherwise specified Other iron deficiency anemia Chronic gout with tophus, not otherwise specified Hypomagnesemia Poor glycemic control Proteinuria, not otherwise specified TSH 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, not otherwise specified (HCC) Vitamin D deficiency, not otherwise specified Other iron deficiency anemia Chronic gout with tophus, not otherwise specified Hypomagnesemia Poor glycemic control Proteinuria, not otherwise specified T4, FREE 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, not otherwise specified (HCC) Vitamin D deficiency, not otherwise specified Other iron deficiency anemia Chronic gout with tophus, not otherwise specified Hypomagnesemia Poor glycemic control Proteinuria, not otherwise specified URIC ACID 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, not otherwise specified (HCC) Vitamin D deficiency, not otherwise specified Other iron deficiency anemia Chronic gout with tophus, not otherwise specified Hypomagnesemia Poor glycemic control Proteinuria, not otherwise specified FERRITIN 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, not otherwise specified (HCC) Vitamin D deficiency, not otherwise specified Other iron deficiency anemia Chronic gout with tophus, not otherwise specified Hypomagnesemia Poor glycemic control Proteinuria, not otherwise specified IRON PANEL (FE, TIBC, TSAT) 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, not otherwise specified (HCC) Vitamin D deficiency, not otherwise specified Other iron deficiency anemia Chronic gout with tophus, not otherwise specified Hypomagnesemia Poor glycemic control Proteinuria, not otherwise specified VITAMIN D 25 HYDROXY 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, not otherwise specified (HCC) Vitamin D deficiency, not otherwise specified Other iron deficiency anemia Chronic gout with tophus, not otherwise specified Hypomagnesemia Poor glycemic control Proteinuria, not otherwise specified PTH, INTACT 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, not otherwise specified (HCC) Vitamin D deficiency, not otherwise specified Other iron deficiency anemia Chronic gout with tophus, not otherwise specified Hypomagnesemia Poor glycemic control Proteinuria, not otherwise specified RENAL FUNCTION PANEL 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, not otherwise specified (HCC) Vitamin D deficiency, not otherwise specified Other iron deficiency anemia Chronic gout with tophus, not otherwise specified Hypomagnesemia Poor glycemic control Proteinuria, not otherwise specified CBC AND DIFFERENTIAL 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 Tacrolimus Lvl 4.7(L) 5.0 - 20.0 ng/mL [facility] Comment: Target steady state trough concentration for Tacrolimus varies based on type of organ transplant immunosuppressive protocol and other patient specific factors. ??Tacrolimus trough concentrations should be interpreted in conjunction with clinical assessments of rejection and tolerability. ??Values obtained with different assay methods cannot be used interchangeably due to differences in assay methods and cross-reactivty with metabolites, nor should correction factors be applied. ??Therefore, consistent use of one assay for individual patients is recommended. Detection Limit = 0.5 ng/mL Performed by LC-MS/MS technology ?Please note reference interval change Blood (Blood, Venous) 07/14/2024 12:17 PM EST 07/14/2024 Narrative [facility] - 07/17/2024 3:06 AM EST Test(s) 650234-[id number] ([id number]), Blood was developed and its performance characteristics determined by [facility]. It has not been cleared or approved by the Food and Drug Administration. Edgar Aguilar MD LAB BLOOD ORDERABLES Final Result [facility] [place] [address] * Reflexive Urine Culture (06/09/2024 2:41 PM EST) Culture Result, Urine Final report [facility] Result Comment [facility] Comment: Mixed urogenital mali 25,000-50,000 colony forming units per mL 06/09/2024 2:41 PM EST 06/09/2024 Romeo CHIN LAB [id number] SOLICITED RESULTS Final Result [facility] [address], [address] [place] [address] * TSH (06/09/2024 2:41 PM EST) Pathologist [facility] TSH 1.310 0.450 - 4.500 uIU/mL [facility] Blood 06/09/2024 2:41 PM EST 06/09/2024 Romeo CHIN LAB BLOOD ORDERABLES Final Re sult [facility] [address] [place] [address] * (ABNORMAL) Urinalysis, Complete w/reflex to Culture (06/09/2024 2:41 PM EST) Pathologist [facility] Specific [place], Urine 1.020 1.005 - 1.030 [facility] [phone] pH Urine 5.5 5.0 - 7.5 [facility] Color, Urine Yellow Yellow [facility] Appearance Urine Clear Clear [facility] [place] WBC Esterase Urine 1+(A) Negative [facility] Protein, Ur 1+(A) Negative/Tra ce [facility] [phone] Glucose, Ur Negative Negative [facility] [phone] Ketones, Urine Negative Negative [facility] [place] Blood Urine Negative Negative [facility] Bilirubin Urine Negative Negative [facility] [place] [phone] Urobilinogen Urine 0.2 0.2 - 1.0 mg/dL [facility] Nitrite, Urine Negative [facility] See below: [facility] [place] [phone] Comment:Microscopic was mi cated and was performed. URINALYSIS REFLEX Comment [facility] [phone] Comment:This specimen has re flexed to a Urine Culture. Urine (Urine, Clean Catch) 06/09/2024 2:41 PM EST 06/09/2024 Romeo CHIN LAB URINE ORDERABLES Final Re sult [facility] [address] [place] [address] * Mycophenolic Acid (06/09/2024 2:41 PM EST) Mycophenolic Acid 1.4 1.0 - 3.5 ug/mL [facility] Mycophenolic Acid Glucuronide 21 15 - 125 ug/mL [facility] Blood (Blood, Venous) 06/09/2024 2:41 PM EST 06/09/2024 Narrative [facility] - 06/13/2024 6:06 PM EST Test(s) [id number] Acid; 772326- Mycophenolic Acid Glucuronide was developed and its performance characteristics determined by [facility]. It has not been cleared or approved by the Food and Drug Administration. Romeo CHIN LAB BLOOD ORDERABLES Final Re sult [facility] [address] [place] [phone] * (ABNORMAL) Microscopic Examination (06/09/2024 2:41 PM EST) WBC, Urine 6-10(A) 0 - 5 /hpf [facility] RBC, Urine None seen 0 - 2 /hpf [facility] Squamous Epithelial, Urine 0-10 0 - 10 /hpf [facility] Casts None seen None seen /lpf [facility] Crystals Present(A) N/A [facility] Crystal Type Calcium Oxalate N/A [facility] Bacteria, Urine None seen None seen/Few [facility] 06/09/2024 2:41 PM EST 06/09/2024 Romeo CHIN LAB MICROBIOLOGY - GENERAL OR DERABLES Final Result Performing Organization Address City/[facility]/ZIP Co de Phone Number [facility] [address] [place] [address] * (ABNORMAL) Iron Panel (Fe, TIBC, TSAT) (06/09/2024 2:41 PM EST) TIBC 246(L) 250 - 450 ug/dL [facility] UIBC 203 118 - 369 ug/dL [facility] Iron 43 27 - 139 ug/dL [facility] Iron Saturation (TSat) 17 15 - 55 % [facility] Blood (Blood, Venous) 06/09/2024 2:41 PM EST 06/09/2024 Romeo CHIN LAB BLOOD ORDERABLES Final Re sult Performing Organization Address City/[facility]/ZIP Co de Phone Number [facility] [address] [place] [address] * Protein, Total, Random Urine w/Creatinine (Protein/Creat Ratio) (06/09/2024 2:41 PM EST) Creatinine, Ur 106.6 Not Estab. mg/dL [facility] Protein, Ur 18.5 Not Estab. mg/dL [facility] Urine Protein/Creatin ine Ratio 174 0 - 200 mg/g creat [facility] Urine (Urine, Clean Catch) 06/09/2024 2:41 PM EST 06/09/2024 Romeo CHIN LAB URINE ORDERABLES Final Re sult Performing Organization Address City/[facility]/ZIP Co de Phone Number [facility] [place] [address] [place] [address] * (ABNORMAL) Vitamin D 25 Hydroxy (06/09/2024 2:41 PM EST) Vitamin D, 25-OH, Total 25.8(L) 30.0 - 100.0 ng/mL [facility] Comment: Vitamin D deficiency has been defined by the [place] of Medicine and an Endocrine Society practice guideline as a level of serum 25-OH vitamin D less than 20 ng/mL (1,2). The Endocrine Society went on to further define vitamin D insufficiency as a level between 21 and 29 ng/mL (2). 1. IOM ([place] of Medicine). 2010. Dietary reference ?? intakes for calcium and D. [place]: The ?? National Academies Press. 2. Juventino MF, David NC, Mariela BROWN, et al. ?? Evaluation, treatment, and prevention of vitamin D ?? deficiency: an Endocrine Society clinical practice ?? guideline. JCEM. 2010; 96(7):1911-30. Blood (Blood, Venous) 06/09/2024 2:41 PM EST 06/09/2024 Roemo CHIN LAB BLOOD ORDERABLES Final Re sult Performing Organization Address City/[facility]/ZIP Co de Phone Number [facility] [address] [place] [address] * (ABNORMAL) CBC and Differential (06/09/2024 2:41 PM EST) Pathologist [facility] WBC 10.1 3.4 - 10.8 x10E3/uL [facility] RBC 4.20 3.77 - 5.28 x10E6/uL [facility] Hemoglobin 13.3 11.1 - 15.9 g/dL [facility] Hematocrit 41.4 34.0 - 46.6 % [facility] MCV 99(H) 79 - 97 fL [facility] MCH 31.7 26.6 - 33.0 pg [facility] MCHC 32.1 31.5 - 35.7 g/dL [facility] RDW 13.3 11.7 - 15.4 % [facility] Platelets 287 150 - 450 x10E3/uL [facility] Neutrophils Relative 57 Not Estab. % [facility] Lymphocytes Relative 30 Not Estab. % [facility] Monocytes 9 Not Estab. % [facility] Eosinophils Relative 4 Not Estab. % [facility] Basophils Relative 0 Not Estab. % [facility] Neutrophils Absolute 5.7 1.4 - 7.0 x10E3/uL [facility] Lymphocytes Absolute 3.1 0.7 - 3.1 x10E3/uL [facility] Monocytes Absolute 0.9 0.1 - 0.9 x10E3/uL [facility] Eosinophils Absolute 0.4 0.0 - 0.4 x10E3/uL [facility] Basophils Absolute 0.0 0.0 - 0.2 x10E3/uL [facility] Immature Granulocytes 0 Not Estab. % [facility] Immature Grans (Absolute) 0.0 0.0 - 0.1 x10E3/uL [facility] Blood (Blood, Venous) 06/09/2024 2:41 PM EST 06/09/2024 Romeo CHIN LAB BLOOD ORDERABLES Final Re sult Performing Organization Address [facility]/ZIP Co de Phone Number [facility] [address] [place] [address] * Uric Acid (06/09/2024 2:41 PM EST) Uric Acid 5.8 3.1 - 7.9 mg/dL [facility] Comment:Therapeutic target f or gout patients: <6.0 Blood (Blood, Venous) 06/09/2024 2:41 PM EST 06/09/2024 Romeo CHIN LAB BLOOD ORDERABLES Final Re sult Performing Organization Address [facility]/ZIP Co de Phone Number [facility] [address] [place] [address] * ALT (06/09/2024 2:41 PM EST) ALT (SGPT) 14 0 - 32 IU/L [facility] Blood (Blood, Venous) 06/09/2024 2:41 PM EST 06/09/2024 Romeo CHIN LAB BLOOD ORDERABLES Final Re sult Performing Organization Address City/[facility]/ZIP Co de Phone Number [facility] [address] [place] [address] * AST (06/09/2024 2:41 PM EST) AST (SGOT) 21 0 - 40 IU/L [facility] Blood (Blood, Venous) 06/09/2024 2:41 PM EST 06/09/2024 Romeo CHIN LAB BLOOD ORDERABLES Final Re sult [facility] [place] [address] [place] [address] * Free T4 (06/09/2024 2:41 PM EST) Free T4 1.14 0.82 - 1.77 ng/dL [facility] Blood (Blood, Venous) 06/09/2024 2:41 PM EST 06/09/2024 Romeo CHIN LAB BLOOD ORDERABLES Final Re sult [facility] [place] [address] [place] [address] * (ABNORMAL) PTH, Intact (06/09/2024 2:41 PM EST) PTH 109(H) 15 - 65 pg/mL [facility] Blood (Blood, Venous) 06/09/2024 2:41 PM EST 06/09/2024 Romeo CHIN LAB BLOOD ORDERABLES Final Re sult [facility] [place] [address] [place] [address] * (ABNORMAL) Magnesium (06/09/2024 2:41 PM EST) Magnesium 1.3(L) 1.6 - 2.3 mg/dL [facility] Blood (Blood, Venous) 06/09/2024 2:41 PM EST 06/09/2024 Romeo CHIN LAB BLOOD ORDERABLES Final Re sult [facility] [place] [address] [place] [address] * (ABNORMAL) Hemoglobin A1c (06/09/2024 2:41 PM EST) Hemoglobin A1C 6.2(H) 4.8 - 5.6 % [facility] Comment: ? Prediabetes: 5.7 - 6.4 ? Diabetes: >6.4 ? Glycemic control for adults with diabetes: <7.0 Blood (Blood, Venous) 06/09/2024 2:41 PM EST 06/09/2024 Romeo CHIN LAB BLOOD ORDERABLES Final Re sult [facility] [place] [address] [place] [address] * (ABNORMAL) Ferritin (06/09/2024 2:41 PM EST) Ferritin 543(H) 15 - 150 ng/mL [facility] Blood (Blood, Venous) 06/09/2024 2:41 PM EST 06/09/2024 Romeo CHIN LAB BLOOD ORDERABLES Final Re sult Performing Organization Address City/[facility]/ZIP Co de Phone Number [facility] [address] [place] [address] * CK (06/09/2024 2:41 PM EST) Pathologist [facility] Creatine Kinase (CK/CPK) 80 32 - 182 U/L [facility] Blood (Blood, Venous) 06/09/2024 2:41 PM EST 06/09/2024 Romeo CHIN LAB BLOOD ORDERABLES Final [facility] Performing Organization Address City/[facility]/ZIP Co de Phone Number [facility] [address] [place] [address] * (ABNORMAL) Renal Function Panel (06/09/2024 2:41 PM EST) Pathologist [facility] Glucose 107(H) 70 - 99 mg/dL [facility] BUN 38(H) 8 - 27 mg/dL [facility] Creatinine 1.04(H) 0.57 - 1.00 mg/dL [facility] eGFR CKD-EPI CR 2020 54(L) >59 mL/min/1.7 3 [facility] BUN/Creatinine Ratio 37(H) 12 - 28 [facility] Sodium 140 134 - 144 mmol/L [facility] Potassium 5.1 3.5 - 5.2 mmol/L [facility] Chloride 102 96 - 106 mmol/L [facility] Bicarbonate (CO2) 20 20 - 29 mmol/L [facility] Calcium 7.8(L) 8.7 - 10.3 mg/dL [facility] Phosphorus 4.2 3.0 - 4.3 mg/dL [facility] Albumin 3.9 3.8 - 4.8 g/dL [facility] Blood (Blood, Venous) 06/09/2024 2:41 PM EST 06/09/2024 Romeo CHIN LAB BLOOD ORDERABLES Final Re sult Performing Organization Address [facility] Co de Phone Number [facility] [address] [place] [address] * Lipid panel (06/09/2024 2:41 PM EST) Cholesterol 161 100 - 199 mg/dL [facility] Triglycerides 145 0 - 149 mg/dL [facility] HDL 46 >39 mg/dL [facility] VLDL Cholesterol Sen 25 5 - 40 mg/dL [facility] LDL Calculated 90 0 - 99 mg/dL [facility] Blood (Blood, Venous) 06/09/2024 2:41 PM EST 06/09/2024 Romeo CHIN LAB BLOOD ORDERABLES Final Re sult Performing Organization Address City/[facility] Co de Phone Number [facility] [address] [place] [address] from Last 3 Months Insurance [facility] Care Teams Navigating Officer Relationship Specialty Start Date End Date Stacy Awan MD [address] [place] [id number] PCP - General Internal Medicine 01/23/23
--- OUTSIDE RECORDS SUMMARY | 2024-08-25 11:12 | XMS_ITS | Encounter Summary ---
Author Organization [facility], Address [address] [place] [address] Phone Care Team Providers Care Rocket Assembly Operator Name Role Phone Stacy Awan MD Primary Care Provider [phone] Reason for Visit * Reason Comments Med Refill Encounter Details Date Type Department Care Team (Late st Contact Info) Description 10/04/2020 [facility]ill [facility] [address] [place] [phone] Edgar Aguilar MD [address] [place] [address] [place] [address] Social History Tobacco Use Types [...] Visit [facility] [address] [place] [phone] Edgar Aguilar MD [address] [place] [address] [place] [address] documented as of this encounter Visit Diagnoses Not on filedocumented in this encounter Care Teams Rocket Assembly Operator Relationship Specialty Start Date End Date Stacy Awan MD [address] [place] [address] PCP - General Internal Medicine 01/23/23 documented as of this encounter
--- OUTSIDE RECORDS SUMMARY | 2024-08-25 11:12 | XMS_ITS | Encounter Summary ---
Author Organization [facility], Address [address] [place] [address] Phone Care Team Providers Care Auto Electrical Technician Name Role Phone Stacy Awan MD Primary Care Provider [phone] Encounter Details Date Type Department Care Team (Late st Contact Info) Description 01/17/2024 Documentation Only [facility], [address] [place] [address] [place], [place] [address] [place] [address] Social History Tobacco Use Types [...] Visit [facility] [address] [place] [address] Edgar Aguilar MD [address] [facility] [facility] [place] [address] documented as of this encounter Visit Diagnoses Not on filedocumented in this encounter Care Teams Auto Electrical Technician Relationship Specialty Start Date End Date Stacy Awan MD [address] [place] [address] PCP - General Internal Medicine 01/23/23 documented as of this encounter
--- NOTE | 2024-08-25 11:38 | A.OFFVIS_ITS ---
Intake Visit Reasons: 1yr followup Intake Note: Patient presents today for a 1 year follow-up on Overactive Bladder: Urology Meds- Toviaz, Estradiol & Nitrofurantoin Allergies to Antibiotic- No Known Allergies Blood Thinner- None Upper Cutter Required: No Accompanied by: Self / Same As Patient Allergies No Known Allergies Allergy (Verified 03/23/23 11:08) Medication List - Last Reconciled 08/25/24 by Krzysztof Ashby MD brimonidine 0.15% 1 drp ophthalmic (eye) BID cinacalcet 90 mg PO DAILY citalopram 20 mg PO DAILY dorzolamide-timolol 22.3-6.8 mg/mL 1 drp ophthalmic (eye) BID estradiol 0.01%(0.1mg/gram) (Estrace) pea sized amount to urethra 3x week ferrous sulfate 27 mg PO DAILY fesoterodine ER (Toviaz) 8 mg PO DAILY 90 days latanoprost 0.005% 1 drp ophthalmic (eye) BEDTIME lovastatin 20 mg PO DAILY multivitamin 1 tab PO DAILY mycophenolate mofetil 250 mg PO nitrofurantoin macrocrystal 50 mg PO BEDTIME 90 days tacrolimus 4 mg PO BID vibegron (Gemtesa) 75 mg PO DAILY 30 days HPI Comments Details: 08/25/24-- History of Present Illness The patient is an 79-year-old female presenting with recurrent urinary tract infections (UTIs) and overactive bladder in the setting of a kidney transplant. She has a significant medical history of adult polycystic kidney disease and received a kidney transplant in 2009. Her most recent UTI occurred in July, following a brief period without prophylactic antibiotics. She had been on a suppressive regimen of nitrofurantoin 50 mg daily, which she found effective but discontinued to consult prior to continuing therapy. Additionally, she has been managing her overactive bladder symptoms with Gemtesa and estrogen vaginal cream, reporting adequate symptom control with this treatment combination. Urinary Symptoms Review - Frequency of recurrent UTIs, most recent in early July - Use of Gemtesa for bladder control - Use of estrogen vaginal cream for symptom management - Previous nitrofurantoin 50 mg daily for suppressive therapy against UTIs Results - Labs: Urine specimen revealed leukocytes negative, 1+ protein, blood negative Discussion Notes We discussed the current management of recurrent UTIs and overactive bladder symptoms. The patient expressed a preference for returning to the daily regimen of nitrofurantoin as it was effective in managing her UTIs. I concurred with refilling this prescription. We also talked about the continuation of Gemtesa and estrogen cream, both contributing to symptom control. We reviewed the option of extending the medication supply to a 90-day regimen, better suited for her needs, even though it may be costlier. Follow-up with nephrology was confirmed for kidney transplant care, and we planned a follow-up call in six months to monitor UTI recurrence. Plan The patient will resume nitrofurantoin 50 mg daily to manage recurrent UTIs. She will also continue Gemtesa and estrogen vaginal cream for overactive bladder symptoms, with prescriptions adjusted to a 90-day supply. The patient will follow up with nephrology next week for ongoing transplant care. A follow-up phone call is scheduled in six months to assess urinary symptom progression. Patient Instructions - Resume nitrofurantoin 50 mg daily as prescribed. - Continue using Gemtesa and estrogen vaginal cream. - Follow up with nephrology as scheduled next week. - Expect a follow-up phone call in six months to check on UTI symptoms. - Report any increase in urinary symptoms or new urine infections promptly. Patient was informed and verbally consented to the use of an ambient scribe for clinic note documentation during this visit. 03/23/2023--Belkis is here for follow-up. She has a h/o adult polycystic disease, and is s/p live kidney transplant 06/08/2010. She is on nitrofurantoin 50 mg daily, suppressive antibiotic therapy due to recurrent UTIs. Also prescribed and uses the vaginal estrogen cream. She states she has been doing well. She denies any irritative voiding symptoms. Denies dysuria, denies hematuria. She is prescribed Toviaz 8 mg which she takes as needed for overactive bladder symptoms of urgency and urge incontinence. She reports the medication is working well for her however she has significant dry mouth, today she states that she has also noted drowsiness while on the medication. In regard to her transplant she is on immunosuppressive medications and follows with Nephrology and states that her labs have been stable. I have discussed today that I want to try a different medication that is in the separate class and should not cause the symptoms noted above. Myrbetriq was my 1st choice but the patient states she has already tried this medication and did work well to relieve her bladder symptoms. I will arrange for samples of gemtesa 75 mg daily. Will continue Estrace cream and daily nitrofurantoin 50 mg. Follow-up in 6 months [facility] Medical History Urinary retention Social History Patient Tobacco Use Status: Never used Tobacco Review of Systems Const All systems reviewed & are unremarkable except as noted in HPI and below Reports no additional complaints Eyes Reports no additional complaints ENT Reports no additional complaints Card Reports no additional complaints Resp Reports no additional complaints GI Reports no additional complaints Reports as per HPI Musc Reports no additional complaints Skin/Breast Reports system reviewed and no additional complaints, except as documented Neuro Reports no additional complaints Psych Reports no additional complaints Endo Reports no additional complaints Tye/Lymph Reports no additional complaints Aller/Immun Reports no additional complaints Results AMB Urinalysis, Automated UA Leukoctes 0 Kevin/uL Last Edit by Savana Quach on 08/25/24 14:27 UA Nitrite Negative Last Edit by Savana Quach on 08/25/24 14:27 UA Urobilinogen 0.2 mg/dL Last Edit by Savana Quach on 08/25/24 14:27 UA Protein 30 mg/dL Last Edit by Savana Quach on 08/25/24 14:27 UA pH 6.5 Last Edit by Savana Quach on 08/25/24 14:27 UA Blood 0 Darian/uL Last Edit by Savana Quach on 08/25/24 14:27 UA Specific [place] 1.010 Last Edit by Savana Quach on 08/25/24 14:27 UA Ketone Negative Last Edit by Savana Quach on 08/25/24 14:27 UA Bilirubin 0 mg/dL Last Edit by Savana Quach on 08/25/24 14:27 UA Glucose 0 mg/dL Last Edit by Savana Quach on 08/25/24 14:27 Assessment & Plan Assessment & Plan (1) OAB (overactive bladder): Code(s): N32.81 - Overactive bladder Category: Medical (2) Vaginal atrophy: Code(s): N95.2 - Postmenopausal atrophic vaginitis Category: Medical (3) Recurrent UTI: Code(s): N39.0 - Urinary tract infection, site not specified Category: Medical (4) Kidney transplant recipient: Code(s): Z94.0 - Kidney transplant status Category: Surgical (5) Polycystic kidney disease: Code(s): Q61.3 - Polycystic kidney, unspecified Category: Medical Orders: Orders AMB Urinalysis Automated Today Z13.9 - Encounter for screening, unspecified Medications: Refilled vibegron (Gemtesa) 75 mg PO DAILY 90 tabs 3RF 30 days nitrofurantoin macrocrystal must administer with a meal/food 50 mg PO BEDTIME 90 caps 3RF 90 days estradiol 0.01%(0.1mg/gram) (Estrace) pea sized amount to urethra 3x week 42.5 grams 4RF Patient Instructions: The patient had an opportunity to ask questions regarding treatment plan. The patient expressed understanding and agreement with the above treatment plan. The patient is aware they should contact our office by phone for worsening of their current condition or the appearance of new symptoms. Compliance is encouraged with any medications and followup testing that is ordered. It is a privilege to be allowed the opportunity to participate in the urologic care of your patient. If you have any questions or concerns regarding treatment for the above conditions please do not hesitate to contact me. The office telephone contact is [phone]. This note is constructed in part using voice recognition software. While every effort has been made to ensure accuracy visual merchandise manager errors may have been included. Yours sincerely, Krzysztof Ashby MD Scribe Plan - Not visible on output: Patient was informed and verbally consented to the use of an ambient scribe for clinic note documentation during this visit. Coding Diagnoses OAB (overactive bladder) N32.81 Vaginal atrophy N95.2 Recurrent UTI N39.0 Kidney transplant recipient Z94.0 Polycystic kidney disease Q61.3
== END 2024-08-25 12:11 | disposition home or self-care (01) ==
LOC: HO.HUSH 10:04
PROVIDERS: PCP Internal Medicine; Visit Provider Urology
DX: Z13.9 Encounter for screening, unspecified (principal)

== ENCOUNTER → 2024-08-25 10:03 | Outpatient (BNVA) | payer MEDICARE, OTHER, SELFPAY | PROVIDERS: PCP Internal Medicine; Visit Provider Urology | DX: N32.81 Overactive bladder (principal); N95.2 Postmenopausal atrophic vaginitis; N39.0 Urinary tract infection, site not specified; Q61.3 Polycystic kidney, unspecified; Z94.0 Kidney transplant status | CPT/HCPCS: 81003; 99212 ==

== ENCOUNTER 2024-10-23 10:56 | Outpatient (AMB) | payer MEDICARE, OTHER, SELFPAY ==
--- NOTE | 2024-10-23 10:56 | A.OFFVIS_ITS ---
Intake Visit Reasons: 8w follow up Intake Note: Patient presents today via telehealth for 8 week follow up Urology Meds- gemtesa, Estradiol & Nitrofurantoin Allergies to Antibiotic- No Known Allergies Blood Thinner- None Real Time Trader Required: No Accompanied by: Self / Same As Patient Allergies No Known Allergies Allergy (Verified 10/23/24 10:58) Medication List - Last Reconciled 10/23/24 by Krzysztof Ashby MD brimonidine 0.15% 1 drp ophthalmic (eye) BID cinacalcet 90 mg PO DAILY citalopram 20 mg PO DAILY dorzolamide-timolol 22.3-6.8 mg/mL 1 drp ophthalmic (eye) BID estradiol 0.01%(0.1mg/gram) (Estrace) pea sized amount to urethra 3x week ferrous sulfate 27 mg PO DAILY fesoterodine ER (Toviaz) 8 mg PO DAILY 90 days latanoprost 0.005% 1 drp ophthalmic (eye) BEDTIME lovastatin 20 mg PO DAILY multivitamin 1 tab PO DAILY mycophenolate mofetil 250 mg PO nitrofurantoin macrocrystal 50 mg PO BEDTIME 90 days tacrolimus 4 mg PO BID vibegron (Gemtesa) 75 mg PO DAILY 30 days HPI Comments Details: 10/23/24--telehealth 8 week follow-up. Belkis is an 79-year-old female with history of frequent UTIs and overactive bladder, history of kidney transplant. Medical history of adult polycystic kidney disease, received a kidney transplant in 2009. She was seen last in the office on 08/25/2024, she had had a breakthrough UTI and requested to resume daily nitrofurantoin 50 mg. She states that she feels that her UTI symptoms are stable on the daily antibiotic therapy. She does use the Gemtesa more so when she is out of the house running errands. She is instructed to call for any breakthrough UTI symptoms otherwise we will have her follow-up in 1 year. 08/25/24--79-year-old female presenting with recurrent urinary tract infections (UTIs) and overactive bladder in the setting of a kidney transplant. She has a significant medical history of adult polycystic kidney disease and received a kidney transplant in 2009. Her most recent UTI occurred in July, following a brief period without prophylactic antibiotics. She had been on a suppressive regimen of nitrofurantoin 50 mg daily, which she found effective but discontinued to consult prior to continuing therapy. Additionally, she has been managing her overactive bladder symptoms with Gemtesa and estrogen vaginal cream, reporting adequate symptom control with this treatment combination. We discussed the current management of recurrent UTIs and overactive bladder symptoms. The patient expressed a preference for returning to the daily regimen of nitrofurantoin as it was effective in managing her UTIs. Urinary Symptoms Review - Frequency of recurrent UTIs, most recent in early July - Use of Gemtesa for bladder control - Use of estrogen vaginal cream for symptom management - Previous nitrofurantoin 50 mg daily for suppressive therapy against UTIs Results - Labs: Urine specimen revealed leukocytes negative, 1+ protein, blood negative 03/23/2023--Belkis is here for follow-up. She has a h/o adult polycystic disease, and is s/p live kidney transplant 06/08/2010. She is on nitrofurantoin 50 mg daily, suppressive antibiotic therapy due to recurrent UTIs. Also prescribed and uses the vaginal estrogen cream. She states she has been doing well. She denies any irritative voiding symptoms. Denies dysuria, denies hematuria. She is prescribed Toviaz 8 mg which she takes as needed for overactive bladder symptoms of urgency and urge incontinence. She reports the medication is working well for her however she has significant dry mouth, today she states that she has also noted drowsiness while on the medication. In regard to her transplant she is on immunosuppressive medications and follows with Nephrology and states that her labs have been stable. I have discussed today that I want to try a different medication that is in the separate class and should not cause the symptoms noted above. Myrbetriq was my 1st choice but the patient states she has already tried this medication and did work well to relieve her bladder symptoms. I will arrange for samples of gemtesa 75 mg daily. Will continue Estrace cream and daily nitrofurantoin 50 mg. Follow- up in 6 months [facility] Medical History Urinary retention Social History Patient Tobacco Use Status: Never used Tobacco Review of Systems Const All systems reviewed & are unremarkable except as noted in HPI and below Reports no additional complaints Eyes Reports no additional complaints ENT Reports no additional complaints Card Reports no additional complaints Resp Reports no additional complaints GI Reports no additional complaints Reports as per HPI Musc Reports no additional complaints Skin/Breast Reports system reviewed and no additional complaints, except as documented Neuro Reports no additional complaints Psych Reports no additional complaints Endo Reports no additional complaints Tye/Lymph Reports no additional complaints Aller/Immun Reports no additional complaints Telehealth Telehealth Telehealth Platform: [facility] Location of provider rendering services: practice address Location of patient: address on file Patient Identification confirmed using: Name, : Yes Telehealth method: voice only Patient verbally consented to treatment: Yes Patient verbally consented to billing insurance company: Yes Patient informed of any privacy concerns related to visit: Yes Minutes spent on Phone/Video with Pt.: 12 Assessment & Plan Assessment & Plan (1) OAB (overactive bladder): Code(s): N32.81 - Overactive bladder Category: Medical (2) Vaginal atrophy: Code(s): N95.2 - Postmenopausal atrophic vaginitis Category: Medical (3) Recurrent UTI: Code(s): N39.0 - Urinary tract infection, site not specified Category: Medical (4) Kidney transplant recipient: Code(s): Z94.0 - Kidney transplant status Category: Surgical (5) Polycystic kidney disease: Code(s): Q61.3 - Polycystic kidney, unspecified Category: Medical Plan - continue nitrofurantoin 50 mg daily as prescribed. - Continue using Gemtesa and estrogen vaginal cream. - follow-up in 1 year - Report any increase in urinary symptoms or new urine infections promptly. Patient Instructions: The patient had an opportunity to ask questions regarding treatment plan. The patient expressed understanding and agreement with the above treatment plan. The patient is aware they should contact our office by phone for worsening of their current condition or the appearance of new symptoms. Compliance is encouraged with any medications and followup testing that is ordered. It is a privilege to be allowed the opportunity to participate in the urologic care of your patient. If you have any questions or concerns regarding treatment for the above conditions please do not hesitate to contact me. The office telephone contact is [phone]. This note is constructed in part using voice recognition software. While every effort has been made to ensure accuracy outreach worker errors may have been included. Yours sincerely, Krzysztof Ashby MD Coding Level of Care Code Tele Est Pt Level 3 (02734) Diagnoses OAB (overactive bladder) N32.81 Vaginal atrophy N95.2 Recurrent UTI N39.0 Kidney transplant recipient Z94.0 Polycystic kidney disease Q61.3
--- OUTSIDE RECORDS SUMMARY | 2024-10-23 12:04 | XMS_ITS | Encounter Summary ---
Author Organization [facility] Address [address] [place] [address] Care Team Providers Care Completion Engineer Name Role Phone Eloisa King MD Primary Care Provider Unavailable Ancelmo Whitney MD Primary Care Provider [phone] Tricia Simmons Unavailable Unavailable Juan A Cristobal MD Unavailable Unavailabl e Destiney Lara MD Unavailable [facility], Pcp Primary Care Provider Unavailabl e Encounter Details Date Type Department Care Team Description 12/20/2016 Propeller Inspector Report Medical Records [address] [place] [address] Abstract, Provider Social History Tobacco Use Types Packs/Day Years Used Date Smoking Tobacco: Former Smokeless Tobacco: Never Comments:smoked for 1 yr 1/2 pk every 3 days Alcohol Use Standard Drinks/Week Comments Yes 0 (1 standard drink = 0.6 oz pur e alcohol) glass of wine 2x week Alcohol Habits Answer Date Recorded How often do you have a drink containing alcohol ? Monthly or less 09/16/2021 How many drinks containing a lcohol do you have on a typical day when you are drinking? 1 or 2 09/16/2021 How often do you have six or more drinks on one occasion? Never 09/16/2021 Social Isolation Answer Date Recorded In a typical week, how many times do you talk on the phone with family, friends, or neighbors? Never 09/16/2021 How often do you get togethe r with friends or relatives? Once a week 09/16/2021 How often do you attend [facility] or pentecostalism services? Never 09/16/2021 Do you belong to any clubs o r organizations such as confucianist groups, unions, fraternal or athletic groups, or school groups? Yes 09/16/2021 How often do you attend meet ings of the clubs or organizations you belong to? More than 4 times per year 09/16/2021 Are you now , , , , never or living with a partner? 09/16/2021 Physical Activity Answer Date Recorded On average, how many days pe r week do you engage in moderate to strenuous exercise (like walking fast, running, jogging, dancing, swimming, biking, or other activities that cause a light or heavy sweat)? 3 days 09/16/2021 On average, how many minutes do you engage in exercise at this level? 20 min 09/16/2021 Stress Answer Date Recorded Do you feel stress - tense, restless, nervous, or anxious, or unable to sleep at night because your mind is troubled all the time - these days? Rather much 09/16/2021 Financial Resource Strain Answer Date R ecorded How hard is it for you to pa y for the very basics like food, housing, medical care, and heating? Not hard at all 09/16/2021 Intimate Partner Violence Answer Date R ecorded Within the last year, have y ou been afraid of your partner or ex-partner? No 09/16/2021 Within the last year, have y ou been humiliated or emotionally abused in other ways by your partner or ex-partner? No Within the last year, have y ou been kicked, hit, slapped, or otherwise physically hurt by your partner or ex-partner? No 09/16/2021 Within the last year, have y ou been raped or forced to have any kind of sexual activity by your partner or ex-partner? No 09/16/2021 Food Insecurity Answer Date Recorded Within the past 12 months, y ou worried that your food would run out before you got money to buy more. Never true 09/16/2021 Within the past 12 months, t he food you bought just didn't last and you didn't have money to get more. Never true 09/16/2021 Transportation Needs Answer Date Record ed In the past 12 months, has l ack of transportation kept you from medical appointments or from getting medications? No 01/2022 In the past 12 months, has l ack of transportation kept you from meetings, work, or getting things needed for daily living? No 09/16/2021 Housing Stability Answer Date Recorded In the last 12 months, was t here a time when you were not able to pay the mortgage or rent on time? No 09/16/2021 In the last 12 months, how many places have you lived? 1 09/16/2021 In the last 12 months, was t here a time when you did not have a steady place to sleep or slept in a usp (including now)? No 09/16/2021 Sex Assigned at Date Recorded Not on file documented as of this encounter Plan of Treatment Not on file documented as of this encounter Visit Diagnoses Not on filedocumented in this encounter Care Teams Completion Engineer Relationship Specialty Start Date End Date Eloisa King MD PCP - General Internal Medicine 05/17/15 Ancelmo Whitney MD [address] [place] [address] PCP - General Internal Medicine 04/28/21 03/07/22 Akbar, Pcp [address] [place] [address] PCP - General Internal Medicine 03/08/22 Tricia Simmons [address] [place] [address] Specialist Ophthalmology 09/16/21 Juan A Cristobal MD [address] [place] [address] Specialist Urology 09/16/21 Destiney Lara MD [address] [place] [address] Specialist Neurology 09/16/21 documented as of this encounter
--- OUTSIDE RECORDS SUMMARY | 2024-10-23 12:04 | XMS_ITS | Encounter Summary ---
Author Organization [facility] Address [address] [place] [address] Care Team Providers Care Resource Manager Name Role Phone Eloisa King MD Primary Care Provider Unavailable Ancelmo Whitney MD Primary Care Provider [phone] Tricia Simmons Unavailable Unavailable Juan A Cristobal MD Unavailable Unavailabl e Destiney Lara MD Unavailable [facility], Pcp Primary Care Provider Unavailabl e Encounter Details Date Type Department Care Team Description 04/26/2017 Brick Molder Hand Report Medical Records [address] [place] [address] Slim Rasmussen MD Social History Tobacco Use Types Packs/Day Years [...] week 09/16/2021 How often do you attend [facility] or nondenominational services? Never 09/16/2021 Do you belong to any clubs o r organizations such as voodoo groups, unions, fraternal or athletic groups, or [...] place to sleep or slept in a alf (including now)? No 09/16/2021 Sex Assigned at Date Recorded Not on file documented as of this encounter Plan of Treatment Not on file documented as of this encounter Visit Diagnoses Not on filedocumented in this encounter Care Teams Resource Manager Relationship Specialty Start Date End Date Eloisa King MD PCP - General Internal Medicine 05/17/15 Ancelmo Whitney MD [address] [place] [address] PCP - General Internal Medicine 04/28/21 03/07/22 [facility], Pcp [address] [place] [address] PCP - General Internal Medicine 03/08/22 Tricia Simmons [address] [place] [address] Specialist Ophthalmology 09/16/21 Juan A Cristobal MD [address] [place] [address] Specialist Urology 09/16/21 Destiney Lara MD [address] [place] [address] Specialist Neurology 09/16/21 documented as of this encounter
--- OUTSIDE RECORDS SUMMARY | 2024-10-23 12:04 | XMS_ITS | Encounter Summary ---
Author Organization [facility] Address [address] [place] [address] Care Team Providers Care Fruit Washer Name Role Phone Marcelo Ortiz MD Primary Care Provider Unavail able Eloisa King MD Primary Care Provider Unavailable Ancelmo Whitney MD Primary Care Provider [phone] Tricia Simmons Unavailable Unavailable Juan A Cristobal MD Unavailable Unavailabl e Destiney Lara MD Unavailable [facility], Pcp Primary Care Provider Unavailabl e Encounter Details Date Type Department Care Team Description 11/05/2012 Lpn Per Diem Report Medical Records [address] [place] [address] Destiney Lara MD Social History Tobacco Use Types Packs/Day Years Used Date Smoking Tobacco: Never Smokeless Tobacco: Never Alcohol Use Standard Drinks/Week [...] week 09/16/2021 How often do you attend [facility] or confucianist services? Never 09/16/2021 Do you belong to any clubs o r organizations such as protestant groups, unions, fraternal or athletic groups, or [...] place to sleep or slept in a senior living (including now)? No 09/16/2021 Sex Assigned at Date Recorded Not on file documented as of this encounter Plan of Treatment Not on file documented as of this encounter Visit Diagnoses Not on filedocumented in this encounter Care Teams Fruit Washer Relationship Specialty Start Date End Date Marcelo Ortiz MD PCP - General 04/10/1999 05/16/15 Eloisa King MD PCP - General Internal Medicine 05/17/15 Ancelmo Whitney MD [address] [place] [address] PCP - General Internal Medicine 04/28/21 03/07/22 [facility], Pcp [address] [place] [address] PCP - General Internal Medicine 03/08/22 Tricia Simmons [address] [place] [address] Specialist Ophthalmology 09/16/21 Juan A Cristobal MD [address] [place] [address] Specialist Urology 09/16/21 Destiney Lara MD [address] [place] [address] Specialist Neurology 09/16/21 documented as of this encounter
--- OUTSIDE RECORDS SUMMARY | 2024-10-23 12:04 | XMS_ITS | Encounter Summary ---
Author Organization [facility] Address [address] [place] [address] Care Team Providers Care Quality Assurance Advisor Name Role Phone Eloisa King MD Primary Care Provider Unavailable Ancelmo Whitney MD Primary Care Provider [phone] Tricia Simmons Unavailable Unavailable Juan A Cristobal MD Unavailable Unavailabl e Destiney Lara MD Unavailable [facility], Pcp Primary Care Provider Unavailabl e Encounter Details Date Type Department Care Team Description 03/01/2017 Apprentice Embalmer Report Medical Records [address] [place] [address] Slim Rasmussen MD Social History Tobacco Use [...] 09/16/2021 How often do you attend [facility] or alevism services? Never 09/16/2021 Do you belong to any clubs o r organizations such as presybeterian groups, unions, fraternal or athletic groups, or [...] place to sleep or slept in a half-way (including now)? No 09/16/2021 Sex Assigned at Date Recorded Not on file documented as of this encounter Plan of Treatment Not on file documented as of this encounter Visit Diagnoses Not on filedocumented in this encounter Care Teams Quality Assurance Advisor Relationship Specialty Start Date End Date Eloisa King MD PCP - General Internal Medicine 05/17/15 Ancelmo Whitney MD [address] [place] [address] PCP - General Internal Medicine 04/28/21 03/07/22 [facility], Pcp [address] [place] [address] PCP - General Internal Medicine 03/08/22 Tricia Simmons [address] [place] [address] Specialist Ophthalmology 09/16/21 Juan A Cristobal MD [address] [place] [address] Specialist Urology 09/16/21 Destiney Lara MD [address] [place] [address] Specialist Neurology 09/16/21 documented as of this encounter
--- OUTSIDE RECORDS SUMMARY | 2024-10-23 12:04 | XMS_ITS | Encounter Summary ---
Author Organization [facility] Address [address] [place] [address] Care Team Providers Care Driller'S Assistant Name Role Phone Marcelo Ortiz MD Primary Care Provider Unavail able Eloisa King MD Primary Care Provider Unavailable Ancelmo Whitney MD Primary Care Provider Tricia Simmons Unavailable Unavailable Juan A Cristobal MD Unavailable Unavailabl e Destiney Lara MD Unavailable [facility], Pcp Primary Care Provider Unavailabl e Encounter Details Date Type Department Care Team Description 10/02/2012 Transfer Records Medical Records [address] [place] [address] Abstract, Provider Social History Tobacco Use Types [...] week 09/16/2021 How often do you attend [facility] or hinduism services? Never 09/16/2021 Do you belong to any clubs o r organizations such as restorationism groups, unions, fraternal or athletic groups, or [...] place to sleep or slept in a long-term (including now)? No 09/16/2021 Sex Assigned at Date Recorded Not on file documented as of this encounter Plan of Treatment Not on file documented as of this encounter Visit Diagnoses Not on filedocumented in this encounter Care Teams Driller'S Assistant Relationship Specialty Start Date End Date Marcelo Ortiz MD PCP - General 04/10/1999 05/16/15 Eloisa King MD PCP - General Internal Medicine 05/17/15 Ancelmo Whitney MD [address] [place] [address] PCP - General Internal Medicine 04/28/21 03/07/22 [facility] [address] [place] [address] PCP - General Internal Medicine 03/08/22 Tricia Simmons [address] [place] [address] Specialist Ophthalmology 09/16/21 Juan A Cristobal MD [address] [place] [address] Specialist Urology 09/16/21 Destiney Lara MD [address] [place] [address] Specialist Neurology 09/16/21 documented as of this encounter
--- OUTSIDE RECORDS SUMMARY | 2024-10-23 12:04 | XMS_ITS | Encounter Summary ---
Author Organization [facility] Address [address] [place] [address] Care Team Providers Care Digital Cartographer Name Role Phone Marcelo Ortiz MD Primary Care Provider Unavail able Eloisa King MD Primary Care Provider Unavailable Ancelmo Whitney MD Primary Care Provider [phone] Tricia Simmons Unavailable Unavailable Juan A Cristobal MD Unavailable Unavailabl e Destiney Lara MD Unavailable [facility], Pcp Primary Care Provider Unavailabl e Encounter Details Date Type Department Care Team Description 11/09/2009 Hospital Medical Records [address] [place] [address] Jesus Alberto Bateman Social History Tobacco Use Types Packs/Day Years [...] week 09/16/2021 How often do you attend [facility] or tenriism services? Never 09/16/2021 Do you belong to any clubs o r organizations such as advent groups, unions, fraternal or athletic groups, or [...] place to sleep or slept in a care home (including now)? No 09/16/2021 Sex Assigned at Date Recorded Not on file documented as of this encounter Plan of Treatment Not on file documented as of this encounter Visit Diagnoses Not on filedocumented in this encounter Care Teams Digital Cartographer Relationship Specialty Start Date End Date Marcelo Ortiz MD PCP - General 04/10/1999 05/16/15 Eloisa King MD PCP - General Internal Medicine 05/17/15 Ancelmo Whitney MD [address] [place] [address] PCP - General Internal Medicine 04/28/21 03/07/22 [facility], Pcp [address] [place] [address] PCP - General Internal Medicine 03/08/22 Tricia Simmons [address] [place] [address] Specialist Ophthalmology 09/16/21 Juan A Cristobal MD [address] [place] [address] Specialist Urology 09/16/21 Destiney Lara MD [address] [place] [address] Specialist Neurology 09/16/21 documented as of this encounter
--- OUTSIDE RECORDS SUMMARY | 2024-10-23 12:04 | XMS_ITS | Encounter Summary ---
Author Organization [facility] Address [address] [place] [address] Care Team Providers Care Cardiology Associate Name Role Phone Eloisa King MD Primary Care Provider Unavailable Ancelmo Whitney MD Primary Care Provider [phone] Tricia Simmons Unavailable Unavailable Juan A Cristobal MD Unavailable Unavailabl e Destiney Lara MD Unavailable [facility], Pcp Primary Care Provider Unavailabl e Reason for Visit * Reason Onset Date Comments Prior Authorization 11/22/2016 Encounter Details Date Type Department Care Team Description 11/22/2016 Telephone Adult [facility] - [address] [address] Eloisa King MD Prior Authorization Social History Tobacco Use Types Packs/Day Years [...] week 09/16/2021 How often do you attend chur ch or christian services? Never 09/16/2021 Do you belong to any clubs o r organizations such as religious groups, unions, fraternal or athletic groups, or [...] on file documented as of this encounter Miscellaneous Notes * Telephone Encounter - Cassidy Xiao M.A. - 11/30/2016 11:41 AM EDT Denied medication by medicare Override has been done and secondary ins will continuous pickling line pickler helper [place] [phone] Prior Auth pool Cassidy Xiao M.A. Regional Prior Authorizations Ext [id number] * Telephone Encounter - Eloisa King MD - 11/30/2016 11:13 AM EDT ok * Telephone Encounter - Sophie Wynn L.P.N. - 11/30/2016 10:[address] in the in basket on Connor;'s desk * Telephone Encounter - Eloisa King MD - 11/30/2016 10:58 AM EDT Sent the forms yesterday with Pat. * Telephone Encounter - Cassidy Xiao M.A. - 11/30/2016 10:56 AM EDT Could we have the denial faxed over to us. Im not sure of the immunosuppresants needed [place] [phone] Prior Auth pool Cassidy Xiao M.A. Regional Prior Authorizations Ext [id number] * Telephone Encounter - Eloisa King MD - 11/29/2016 3:32 PM EDT Received denial for her zolpidem and immunosuppresants. Can we send nephrology visit notes and information regarding her transplant status. documented in this encounter Plan of Treatment Not on file documented as of this encounter Visit Diagnoses Not on filedocumented in this encounter Care Teams Cardiology Associate Relationship Specialty Start Date End Date Eloisa King MD PCP - General Internal Medicine 05/17/15 Ancelmo Whitney MD [address] [place] [address] PCP - General Internal Medicine 04/28/21 03/07/22 [facility], Pcp [address] [place] [address] PCP - General Internal Medicine 03/08/22 Tricia Simmons [address] [place] [address] Specialist Ophthalmology 09/16/21 Juan A Cristobal MD [address] [place] [address] Specialist Urology 09/16/21 Destiney Lara MD [address] [place] [address] Specialist Neurology 09/16/21 documented as of this encounter
--- OUTSIDE RECORDS SUMMARY | 2024-10-23 12:04 | XMS_ITS | Encounter Summary ---
Author Organization [facility] Address [address] [place] [address] Care Team Providers Care Core Stacker Name Role Phone Marcelo Ortiz MD Primary Care Provider Unavail able Eloisa King MD Primary Care Provider Unavailable Ancelmo Whitney MD Primary Care Provider [phone] Tricia Simmons Unavailable Unavailable Juan A Cristobal MD Unavailable Unavailabl e Destiney Lara MD Unavailable [facility], Pcp Primary Care Provider Unavailabl e Encounter Details Date Type Department Care Team Description 11/20/2009 Hospital Medical Records [address] [place] [address] Narcisa Plata Social History Tobacco Use Types Packs/Day Years [...] week 09/16/2021 How often do you attend [facility] or yarsani services? Never 09/16/2021 Do you belong to any clubs o r organizations such as rastafarian groups, unions, fraternal or athletic groups, or [...] place to sleep or slept in a correction (including now)? No 09/16/2021 Sex Assigned at Date Recorded Not on file documented as of this encounter Plan of Treatment Not on file documented as of this encounter Visit Diagnoses Not on filedocumented in this encounter Care Teams Core Stacker Relationship Specialty Start Date End Date Marcelo Ortiz MD PCP - General 04/10/1999 05/16/15 Eloisa King MD PCP - General Internal Medicine 05/17/15 Ancelmo Whitney MD [address] [place] [address] PCP - General Internal Medicine 04/28/21 03/07/22 [facility], Pcp [address] [place] [address] PCP - General Internal Medicine 03/08/22 Tricia Simmons 305 [place] [address] Specialist Ophthalmology 09/16/21 Juan A Cristobal MD [address] [place] [address] Specialist Urology 09/16/21 Destiney Lara MD [address] [place] [address] Specialist Neurology 09/16/21 documented as of this encounter
--- OUTSIDE RECORDS SUMMARY | 2024-10-23 12:04 | XMS_ITS | Encounter Summary ---
Author Organization [facility] Address [address] [place] [address] Care Team Providers Care Study Abroad Coordinator Name Role Phone Eloisa King MD Primary Care Provider Unavailable Ancelmo Whitney MD Primary Care Provider Tricia Simmons Unavailable Unavailable Juan A Cristobal MD Unavailable Unavailabl e Destiney Lara MD Unavailable [facility], Pcp Primary Care Provider Unavailabl e Encounter Details Date Type Department Care Team Description 07/09/2018 Price Economist Report Medical Records [address] [place], [place] [id number] [place] [address], [facility] Tobacco Use Types Packs/Day Years Used Date [...] week 09/16/2021 How often do you attend [facility] or bahai services? Never 09/16/2021 Do you belong to any clubs o r organizations such as synagogue groups, unions, fraternal or athletic groups, or [...] place to sleep or slept in a chcf (including now)? No 09/16/2021 Sex Assigned at Date Recorded Not on file documented as of this encounter Plan of Treatment Not on file documented as of this encounter Visit Diagnoses Not on filedocumented in this encounter Care Teams Study Abroad Coordinator Relationship Specialty Start Date End Date Eloisa King MD PCP - General Internal Medicine 05/17/15 Ancelmo Whitney MD [address] [place] [address] PCP - General Internal Medicine 04/28/21 03/07/22 [facility], Pcp [address] [place] [address] PCP - General Internal Medicine 03/08/22 Tricia Simmons [address] [place] [address] Specialist Ophthalmology 09/16/21 Juna A Cristobal MD [address] [place] [address] Specialist Urology 09/16/21 Destiney Lara MD [address] [place] [address] Specialist Neurology 09/16/21 documented as of this encounter
--- OUTSIDE RECORDS SUMMARY | 2024-10-23 12:05 | XMS_ITS | Encounter Summary ---
Author Organization [facility] Address [address] [place] [address] Care Team Providers Care Tugboat Captain Name Role Phone Marcelo Ortiz MD Primary Care Provider Unavail able Eloisa King MD Primary Care Provider Unavailable Ancelmo Whitney MD Primary Care Provider [phone] Tricia Simmons Unavailable Unavailable Juan A Cristobal MD Unavailable Unavailabl e Destiney Lara MD Unavailable [facility], Pcp Primary Care Provider Unavailabl e Encounter Details Date Type Department Care Team Description 05/25/2011 Net Developer Report Medical Records [address] [place] [address] Edgar Aguilar MD, MD Social History Tobacco Use Types Packs/Day [...] week 09/16/2021 How often do you attend [facility] or mandaen services? Never 09/16/2021 Do you belong to any clubs o r organizations such as gnosticist groups, unions, fraternal or athletic groups, or [...] place to sleep or slept in a skilled nursing (including now)? No 09/16/2021 Sex Assigned at Date Recorded Not on file documented as of this encounter Plan of Treatment Not on file documented as of this encounter Visit Diagnoses Not on filedocumented in this encounter Care Teams Tugboat Captain Relationship Specialty Start Date End Date Marcelo Ortiz MD PCP - General 04/10/1999 05/16/15 Eloisa King MD PCP - General Internal Medicine 05/17/15 Ancelmo Whitney MD [address] [place] [address] PCP - General Internal Medicine 04/28/21 03/07/22 [facility] [address] [place] [address] PCP - General Internal Medicine 03/08/22 Tricia Simmons [address] [place] [address] Specialist Ophthalmology 09/16/21 Juan A Cristobal MD [address] [place] [address] Specialist Urology 09/16/21 Destiney Lara MD [address] [place] [address] Specialist Neurology 09/16/21 documented as of this encounter
--- OUTSIDE RECORDS SUMMARY | 2024-10-23 12:05 | XMS_ITS | Encounter Summary ---
Author Organization [facility] Address [address] [place] [address] Care Team Providers Care Seamark Advanced Operator Maintainer Name Role Phone Eloisa King MD Primary Care Provider Unavailable Ancelmo Whitney MD Primary Care Provider [phone] Tricia Simmons Unavailable Unavailable Juan A Cristobal MD Unavailable Unavailabl e Destiney Lara MD Unavailable [facility], Pcp Primary Care Provider Unavailabl e Encounter Details Date Type Department Care Team Description 06/16/2016 Business Doc Medical Records [address] [place] [address] Abstract, Provider Social History Tobacco Use Types [...] week 09/16/2021 How often do you attend [facility] or jehovah's witness services? Never 09/16/2021 Do you belong to any clubs o r organizations such as hinduism groups, unions, fraternal or athletic groups, or [...] place to sleep or slept in a custodial (including now)? No 09/16/2021 Sex Assigned at Date Recorded Not on file documented as of this encounter Plan of Treatment Not on file documented as of this encounter Visit Diagnoses Not on filedocumented in this encounter Care Teams Seamark Advanced Operator Maintainer Relationship Specialty Start Date End Date Eloisa King MD PCP - General Internal Medicine 05/17/15 Ancelmo Whitney MD [address] [place] [address] PCP - General Internal Medicine 04/28/21 03/07/22 [facility], Pcp [address] [place] [address] PCP - General Internal Medicine 03/08/22 Tricia Simmons [address] [place] [address] Specialist Ophthalmology 09/16/21 Juan A Cristobal MD [address] [place] [address] Specialist Urology 09/16/21 Destiney Lara MD [address] [place] [address] Specialist Neurology 09/16/21 documented as of this encounter
--- OUTSIDE RECORDS SUMMARY | 2024-10-23 12:05 | XMS_ITS | Encounter Summary ---
Author Organization [facility] Address [address] [place] [address] Care Team Providers Care Graining Press Operator Name Role Phone Marcelo Ortiz MD Primary Care Provider Unavail able Eloisa King MD Primary Care Provider Unavailable Ancelmo Whitney MD Primary Care Provider [phone] Tricia Simmons Unavailable Unavailable Juan A Cristobal MD Unavailable Unavailabl e Destiney Lara MD Unavailable [facility], Pcp Primary Care Provider Unavailabl e Encounter Details Date Type Department Care Team Description 03/04/2010 Dry Room Attendant Report Medical Records [address] [place] [address] Joshua Thakur MD Social History Tobacco Use Types Packs/Day [...] week 09/16/2021 How often do you attend [facility] or restorationist services? Never 09/16/2021 Do you belong to any clubs o r organizations such as druze groups, unions, fraternal or athletic groups, or [...] place to sleep or slept in a mcfp (including now)? No 09/16/2021 Sex Assigned at Date Recorded Not on file documented as of this encounter Plan of Treatment Not on file documented as of this encounter Visit Diagnoses Not on filedocumented in this encounter Care Teams Graining Press Operator Relationship Specialty Start Date End Date Marcelo Ortiz MD PCP - General 04/10/1999 05/16/15 Eloisa King MD PCP - General Internal Medicine 05/17/15 Ancelmo Whitney MD [address] [place] [address] PCP - General Internal Medicine 04/28/21 03/07/22 [facility], [facility] [address] [place] [address] PCP - General Internal Medicine 03/08/22 Tricia Simmons [address] [place] [address] Specialist Ophthalmology 09/16/21 Juan A Cristobal MD [address] [place] [address] Specialist Urology 09/16/21 Destiney Lara MD [address] [place] [address] Specialist Neurology 09/16/21 documented as of this encounter
--- OUTSIDE RECORDS SUMMARY | 2024-10-23 12:05 | XMS_ITS | Encounter Summary ---
Author Organization [facility] Address [address] [place] [address] Care Team Providers Care Qa Test Lead Name Role Phone Marcelo Ortiz MD Primary Care Provider Unavail able Eloisa King MD Primary Care Provider Unavailable Ancelmo Whitney MD Primary Care Provider [phone] Tricia Simmons Unavailable Unavailable Juan A Cristobal MD Unavailable Unavailabl e Destiney Lara MD Unavailable [facility], Pcp Primary Care Provider Unavailabl e Encounter Details Date Type Department Care Team Description 03/11/2013 Business Doc Medical Records [address] [place] [address] Abstract, Provider Social History Tobacco Use Types [...] week 09/16/2021 How often do you attend [facility] or congregational services? Never 09/16/2021 Do you belong to any clubs o r organizations such as muslim groups, unions, fraternal or athletic groups, or [...] place to sleep or slept in a residential (including now)? No 09/16/2021 Sex Assigned at Date Recorded Not on file documented as of this encounter Plan of Treatment Not on file documented as of this encounter Visit Diagnoses Not on filedocumented in this encounter Care Teams Qa Test Lead Relationship Specialty Start Date End Date Marcelo Ortiz MD PCP - General 04/10/1999 05/16/15 Eloisa King MD PCP - General Internal Medicine 05/17/15 Ancemlo Whitney MD [address] [place] [address] PCP - General Internal Medicine 04/28/21 03/07/22 [facility], [facility] [address] [facility] [place] [address] PCP - General Internal Medicine 03/08/22 Tricia Simmons [address] [facility] [place] [address] Specialist Ophthalmology 09/16/21 Juan A Cristobal MD [address] [facility] [place] [address] Specialist Urology 09/16/21 Destiney Lara MD [address] [facility] [place] [address] Specialist Neurology 09/16/21 documented as of this encounter
--- OUTSIDE RECORDS SUMMARY | 2024-10-23 12:05 | XMS_ITS | Encounter Summary ---
Author Organization [facility] Address [address] [place] [address] Care Team Providers Care News Production Assistant Name Role Phone Marcelo Ortiz MD Primary Care Provider Unavail able Eloisa King MD Primary Care Provider Unavailable Ancelmo Whitney MD Primary Care Provider [phone] Tricia Simmons Unavailable Unavailable Juan A Cristobal MD Unavailable Unavailabl e Destiney Lara MD Unavailable [facility], Pcp Primary Care Provider Unavailabl e Encounter Details Date Type Department Care Team Description 07/09/2014 Sharepoint Solutions Architect Report Medical Records [address] [place] [address] Emma Hodge MD Social History Tobacco Use Types Packs/Day [...] week 09/16/2021 How often do you attend [facility] or mandaeism services? Never 09/16/2021 Do you belong to [...] place to sleep or slept in a fdc (including now)? No 09/16/2021 Sex Assigned at Date Recorded Not on file documented as of this encounter Plan of Treatment Not on file documented as of this encounter Visit Diagnoses Not on filedocumented in this encounter Care Teams News Production Assistant Relationship Specialty Start Date End Date Marcelo Ortiz MD PCP - General 04/10/1999 05/16/15 Eloisa King MD PCP - General Internal Medicine 05/17/15 Ancelmo Whitney MD [address] [place] [address] PCP - General Internal Medicine 04/28/21 03/07/22 [facility] [address] [place] [address] PCP - General Internal Medicine 03/08/22 Tricia Simmons [address] [place] [address] Specialist Ophthalmology 09/16/21 Juan A Cristobal MD [address] [place] [address] Specialist Urology 09/16/21 Destiney Lara MD 305 [place] [address] Specialist Neurology 09/16/21 documented as of this encounter
--- OUTSIDE RECORDS SUMMARY | 2024-10-23 12:05 | XMS_ITS | Encounter Summary ---
Author Organization [facility], Address [address] [place] [address] Phone Care Team Providers Care Enamel Shader Name Role Phone Stacy Awan MD Primary Care Provider [phone] Reason for Visit * Reason Comments Med Refill Encounter Details Date Type Department Care Team (Late st Contact Info) Description 10/04/2020 Refill [facility] [address] [place] [phone] Edgar Aguilar MD [address] [place] [address] [place] [address] Social History Tobacco Use Types [...] Encounters Date Type Department Care Team (Late Contact Info) Description 11/10/2024 3:00 PM EDT Office Visit [facility] [address] [place] [phone] Edgar Aguilar MD [address] [place] [address] [place] [address] documented as of this encounter Visit Diagnoses Not on filedocumented in this encounter Care Teams Enamel Shader Relationship Specialty Start Date End Date Stacy Awan MD [address] [place] [address] PCP - General Internal Medicine 01/23/23 documented as of this encounter
--- OUTSIDE RECORDS SUMMARY | 2024-10-23 12:05 | XMS_ITS | Encounter Summary ---
Author Organization [facility] Address [address] [place] [address] Care Team Providers Care Upholsterer Helper Name Role Phone Marcelo Ortiz MD Primary Care Provider Unavail able Eloisa King MD Primary Care Provider Unavailable Ancelmo Whitney MD Primary Care Provider [phone] Tricia Simmons Unavailable Unavailable Juan A Cristobal MD Unavailable Unavailabl e Destiney Lara MD Unavailable [facility], Pcp Primary Care Provider Unavailabl e Encounter Details Date Type Department Care Team Description 10/13/2009 Hospital Medical Records [address] [place] [address] Yolie Vivas Social History Tobacco Use Types Packs/Day Years [...] often do you attend chur ch or hoahaoism services? Never 09/16/2021 Do you belong to any clubs o r organizations such as zoroastrian groups, unions, fraternal or athletic groups, or [...] place to sleep or slept in a snf (including now)? No 09/16/2021 Sex Assigned at Date Recorded Not on file documented as of this encounter Plan of Treatment Not on file documented as of this encounter Visit Diagnoses Not on filedocumented in this encounter Care Teams Upholsterer Helper Relationship Specialty Start Date End Date Marcelo Ortiz MD PCP - General 04/10/1999 05/16/15 Eloisa King MD PCP - General Internal Medicine 05/17/15 Ancelmo Whitney MD [address] [place] [address] PCP - General Internal Medicine 04/28/21 03/07/22 [facility], Pcp [address] [place] [address] PCP - General Internal Medicine 03/08/22 Tricia Simmons 305 [facility] [place] [address] Specialist Ophthalmology 09/16/21 Juan A Cristobal MD [address] [facility] [place] [address] Specialist Urology 09/16/21 Destiney Lara MD [address] [place] [address] Specialist Neurology 09/16/21 documented as of this encounter
--- OUTSIDE RECORDS SUMMARY | 2024-10-23 12:05 | XMS_ITS | Encounter Summary ---
Author Organization [facility] Address [address] [place] [address] Care Team Providers Care Hvac R Tech Name Role Phone Marcelo Ortiz MD Primary Care Provider Unavail able Eloisa King MD Primary Care Provider Unavailable Ancelmo Whitney MD Primary Care Provider [phone] Tricia Simmons Unavailable Unavailable Juan A Cristobal MD Unavailable Unavailabl e Destiney Lara MD Unavailable [facility], Pcp Primary Care Provider Unavailabl e Encounter Details Date Type Department Care Team Description 09/21/2010 Puller Machine Report Medical Records [address] [place] [address] Slim Rasmussen MD Social History Tobacco Use [...] week 09/16/2021 How often do you attend [facility] or latter-day services? Never 09/16/2021 Do you belong to any clubs o r organizations such as nondenominational groups, unions, fraternal or athletic groups, or [...] on filedocumented in this encounter Care Teams Hvac R Tech Relationship Specialty Start Date End Date Marcelo Ortiz MD PCP - General 04/10/1999 05/16/15 Eloisa King MD PCP - General Internal Medicine 05/17/15 Ancelmo Whintey MD [address] [place] [address] PCP - General Internal Medicine 04/28/21 03/07/22 [facility] [address] [place] [address] PCP - General Internal Medicine 03/08/22 Tricia Simmons [address] [place] [address] Specialist Ophthalmology 09/16/21 Juan A Cristobal MD [address] [place] [address] Specialist Urology 09/16/21 Destiney Lara MD [address] [place] [address] Specialist Neurology 09/16/21 documented as of this encounter
--- OUTSIDE RECORDS SUMMARY | 2024-10-23 12:05 | XMS_ITS | Encounter Summary ---
Author Organization [facility] Address [address] [place] [address] Care Team Providers Care Manager Security Name Role Phone Eloisa King MD Primary Care Provider Unavailable Ancelmo Whitney MD Primary Care Provider [phone] Tricia Simmons Unavailable Unavailable Juan A Cristobal MD Unavailable Unavailabl e Destiney Lara MD Unavailable [facility], Pcp Primary Care Provider Unavailabl e Encounter Details Date Type Department Care Team Description 12/27/2020 Cabin Supervisor Report Medical Records [address] [place] [address] Destiney Lara MD Social History Tobacco Use [...] week 09/16/2021 How often do you attend [facility] or congregation services? Never 09/16/2021 Do you belong to any clubs o r organizations such as sikhism groups, unions, fraternal or athletic groups, or [...] place to sleep or slept in a fci (including now)? No 09/16/2021 Sex Assigned at Date Recorded Not on file documented as of this encounter Plan of Treatment Not on file documented as of this encounter Visit Diagnoses Not on filedocumented in this encounter Care Teams Manager Security Relationship Specialty Start Date End Date Eloisa King MD PCP - General Internal Medicine 05/17/15 Ancelmo Whitney MD [address] [place] [address] PCP - General Internal Medicine 04/28/21 03/07/22 [facility], Pcp [address] [place] [address] PCP - General Internal Medicine 03/08/22 Tricia Simmons [address] [place] [address] Specialist Ophthalmology 09/16/21 Juan A Cristobal MD [address] [place] [address] Specialist Urology 09/16/21 Destiney Lara MD [address] [place] [address] Specialist Neurology 09/16/21 documented as of this encounter
--- OUTSIDE RECORDS SUMMARY | 2024-10-23 12:05 | XMS_ITS | Encounter Summary ---
Author Organization [facility] Address [address] [place] [address] Phone Care Team Providers Care Manager Study Name Role Phone Stacy Awan MD Primary Care Provider [phone] Encounter Details Date Type Department Care Team (Latest Contact Info) Description 10/20/2024 Orders Only [facility] [address] [place] [id number] [place], [place] [address] [place] [address] Secondary hyperparathyroidism of renal origin (HCC) (Primary Dx); History of immunosuppressive therapy; History of renal transplant; Chronic kidney disease, stage 2 (mild); Other iron deficiency anemia; Other specified hypoparathyroidism (HCC); Albuminuria, not otherwise specified Social History Tobacco Use Types Packs/Day [...] Care Team (Late st Contact Info) Description 11/10/2024 3:00 PM EDT Office Visit [facility] [address] [place] [phone] Edgar Aguilar MD [address] [place] [phone] Scheduled Orders Name Type Priority Associated Diagnoses Orde r Schedule Tacrolimus, Highly Sensitive, LC/MS/MS Lab Routine Secondary hyperparathyroidism of renal origin (HCC) History of immunosuppressive therapy History of renal transplant Chronic kidney disease, stage 2 (mild) Other iron deficiency anemia Other specified hypoparathyroidism (HCC) Albuminuria, not otherwise specified Expected: 10/20/2024, Expires: 11/20/2025 Mycophenolic Acid and Metabo. Lab Routine Secondary hyperparathyroidism of renal origin (HCC) History of immunosuppressive therapy History of renal transplant Chronic kidney disease, stage 2 (mild) Other iron deficiency anemia Other specified hypoparathyroidism (HCC) Albuminuria, not otherwise specified Expected: 10/20/2024, Expires: 11/20/2025 Renal Function Panel Lab Routine Secondary hyperparathyroidism of renal origin (HCC) History of immunosuppressive therapy History of renal transplant Chronic kidney disease, stage 2 (mild) Other iron deficiency anemia Other specified hypoparathyroidism (HCC) Albuminuria, not otherwise specified Expected: 10/20/2024, Expires: 11/20/2025 CBC and Differential Lab Routine Secondary hyperparathyroidism of renal origin (HCC) History of immunosuppressive therapy History of renal transplant Chronic kidney disease, stage 2 (mild) Other iron deficiency anemia Other specified hypoparathyroidism (HCC) Albuminuria, not otherwise specified Expected: 10/20/2024, Expires: 11/20/2025 AST Lab Routine Secondary hyperparathyroidism of renal origin (HCC) History of immunosuppressive therapy History of renal transplant Chronic kidney disease, stage 2 (mild) Other iron deficiency anemia Other specified hypoparathyroidism (HCC) Albuminuria, not otherwise specified Expected: 10/20/2024, Expires: 11/20/2025 ALT Lab Routine Secondary hyperparathyroidism of renal origin (HCC) History of immunosuppressive therapy History of renal transplant Chronic kidney disease, stage 2 (mild) Other iron deficiency anemia Other specified hypoparathyroidism (HCC) Albuminuria, not otherwise specified Expected: 10/20/2024, Expires: 11/20/2025 CK Lab Routine Secondary hyperparathyroidism of renal origin (HCC) History of immunosuppressive therapy History of renal transplant Chronic kidney disease, stage 2 (mild) Other iron deficiency anemia Other specified hypoparathyroidism (HCC) Albuminuria, not otherwise specified Expected: 10/20/2024, Expires: 11/20/2025 Ferritin Lab Routine Secondary hyperparathyroidism of renal origin (HCC) History of immunosuppressive therapy History of renal transplant Chronic kidney disease, stage 2 (mild) Other iron deficiency anemia Other specified hypoparathyroidism (HCC) Albuminuria, not otherwise specified Expected: 10/20/2024, Expires: 11/20/2025 Iron Panel (Fe, TIBC, TSAT) Lab Routine Secondary hyperparathyroidism of renal origin (HCC) History of immunosuppressive therapy History of renal transplant Chronic kidney disease, stage 2 (mild) Other iron deficiency anemia Other specified hypoparathyroidism (HCC) Albuminuria, not otherwise specified Expected: 10/20/2024, Expires: 11/20/2025 PTH, Intact Lab Routine Secondary hyperparathyroidism of renal origin (HCC) History of immunosuppressive therapy History of renal transplant Chronic kidney disease, stage 2 (mild) Other iron deficiency anemia Other specified hypoparathyroidism (HCC) Albuminuria, not otherwise specified Expected: 10/20/2024, Expires: 11/20/2025 Urine Albumin / Creatinine Ratio Lab Routine Secondary hyperparathyroidism of renal origin (HCC) History of immunosuppressive therapy History of renal transplant Chronic kidney disease, stage 2 (mild) Other iron deficiency anemia Other specified hypoparathyroidism (HCC) Albuminuria, not otherwise specified Expected: 10/20/2024, Expires: 11/20/2025 Urinalysis, Complete w/reflex to Culture Lab Routine Secondary hyperparathyroidism of renal origin (HCC) History of immunosuppressive therapy History of renal transplant Chronic kidney disease, stage 2 (mild) Other iron deficiency anemia Other specified hypoparathyroidism (HCC) Albuminuria, not otherwise specified Expected: 10/20/2024, Expires: 11/20/2025 documented as of this encounter Visit Diagnoses Diagnosis Secondary hyperparathyroidism of renal origin (HCC)- Primary Secondary hyperparathyroidism of renal origin History of immunosuppressive therapy History of renal transplant Chronic kidney disease, stage 2 (mild) Other iron deficiency anemia Other specified hypoparathyroidism (HCC) Albuminuria, not otherwise specified documented in this encounter Care Teams Manager Study Relationship Specialty Start Date End Date Stacy Awan MD [address] [place] [address] PCP - General Internal Medicine 01/23/23 documented as of this encounter
--- OUTSIDE RECORDS SUMMARY | 2024-10-23 12:05 | XMS_ITS | Encounter Summary ---
Author Organization [facility] Address [address] [place] [address] Care Team Providers Care Operating Room Orderly Name Role Phone Marcelo Ortiz MD Primary Care Provider Unavail able Eloisa King MD Primary Care Provider Unavailable Ancelmo Whitney MD Primary Care Provider [phone] Tricia Simmons Unavailable Unavailable Juan A Cristobal MD Unavailable Unavailabl e Destiney Lara MD Unavailable [facility], Pcp Primary Care Provider Unavailabl e Encounter Details Date Type Department Care Team Description 03/13/2012 Hospital Medical Records [address] [place] [address] Social History Tobacco Use Types Packs/Day Years [...] week 09/16/2021 How often do you attend [facility] or hinduism services? Never 09/16/2021 Do you belong to any clubs o r organizations such as anglican groups, unions, fraternal or athletic groups, or [...] place to sleep or slept in a retirement (including now)? No 09/16/2021 Sex Assigned at Date Recorded Not on file documented as of this encounter Plan of Treatment Not on file documented as of this encounter Visit Diagnoses Not on filedocumented in this encounter Care Teams Operating Room Orderly Relationship Specialty Start Date End Date Marcelo Ortiz MD PCP - General 04/10/1999 05/16/15 Eloisa King MD PCP - General Internal Medicine 05/17/15 Ancelmo Whitney MD [address] [place] [address] PCP - General Internal Medicine 04/28/21 03/07/22 [facility], Pcp [address] [place] [address] PCP - General Internal Medicine 03/08/22 Tricia Simmons [address] [place] [address] Specialist Ophthalmology 09/16/21 Juan A Cristobal MD [address] [place] [address] Specialist Urology 09/16/21 Destiney Lara MD [address] [place] [address] Specialist Neurology 09/16/21 documented as of this encounter
--- OUTSIDE RECORDS SUMMARY | 2024-10-23 12:05 | XMS_ITS | Encounter Summary ---
Author Organization [facility] Address [address] [place] [address] Care Team Providers Care Cam Maker Name Role Phone Marcelo Ortiz MD Primary Care Provider Unavail able Eloisa King MD Primary Care Provider Unavailable Ancelmo Whitney MD Primary Care Provider Tricia Simmons Unavailable Unavailable Juan A Cristobal MD Unavailable Unavailabl e Destiney Lara MD Unavailable [facility], Pcp Primary Care Provider Unavailabl e Encounter Details Date Type Department Care Team Description 03/21/2011 Wood Miller Report Medical Records [address] [place] [address] Destiney Lara [address] [place] [address] Social History Tobacco Use Types Packs/Day Years [...] often do you attend chur ch or episcopalian services? Never 09/16/2021 Do you belong to [...] on filedocumented in this encounter Care Teams Cam Maker Relationship Specialty Start Date End Date Marcelo Ortiz MD PCP - General 04/10/1999 05/16/15 Eloisa King MD PCP - General Internal Medicine 05/17/15 Ancelmo Whitney MD [address] [place] [address] PCP - General Internal Medicine 04/28/21 03/07/22 [facility], Pcp [address] [place] [address] PCP - General Internal Medicine 03/08/22 Tricia Simmons [address] [place] [address] Specialist Ophthalmology 09/16/21 Juan A Cristobal MD [address] [place] [address] Specialist Urology 09/16/21 Destiney Lara MD [address] [place] [address] Specialist Neurology 09/16/21 documented as of this encounter
--- OUTSIDE RECORDS SUMMARY | 2024-10-23 12:05 | XMS_ITS | Encounter Summary ---
Author Organization [facility] Address [address] [place] [address] Care Team Providers Care Grants Manager Name Role Phone Eloisa King MD Primary Care Provider Unavailable Ancelmo Whitney MD Primary Care Provider [phone] Tricia Simmons Unavailable Unavailable Juan A Cristobal MD Unavailable Unavailabl e Destiney Lara MD Unavailable [facility], Pcp Primary Care Provider Unavailabl e Encounter Details Date Type Department Care Team Description 03/07/2018 Neuropsychology Division Chief Report Medical Records [address] [place] [address] Sahara Kelly MD Social History Tobacco Use Types Packs/Day [...] week 09/16/2021 How often do you attend [facility] or scientologist services? Never 09/16/2021 Do you belong to any clubs o r organizations such as mandaen groups, unions, fraternal or athletic groups, or [...] place to sleep or slept in a jail (including now)? No 09/16/2021 Sex Assigned at Date Recorded Not on file documented as of this encounter Plan of Treatment Not on file documented as of this encounter Visit Diagnoses Not on filedocumented in this encounter Care Teams Grants Manager Relationship Specialty Start Date End Date Eloisa King MD PCP - General Internal Medicine 05/17/15 Ancelmo Whitney MD [address] [place] [address] PCP - General Internal Medicine 04/28/21 03/07/22 [facility], Pcp [address] [place] [address] PCP - General Internal Medicine 03/08/22 Tricia Simmons [address] [place] [address] Specialist Ophthalmology 09/16/21 Juan A Cristobal MD [address] [place] [address] Specialist Urology 09/16/21 Destiney Lara MD [address] [place] [address] Specialist Neurology 09/16/21 documented as of this encounter
--- OUTSIDE RECORDS SUMMARY | 2024-10-23 12:05 | XMS_ITS | Encounter Summary ---
Author Organization [facility] Address [address] [place] [address] Care Team Providers Care Rn Transplant Name Role Phone Marcelo Ortiz MD Primary Care Provider Unavail able Eloisa King MD Primary Care Provider Unavailable Ancelmo Whitney MD Primary Care Provider [phone] Tricia Simmons Unavailable Unavailable Juan A Cristobal MD Unavailable Unavailabl e Destiney Lara MD Unavailable [facility], Pcp Primary Care Provider Unavailabl e Encounter Details Date Type Department Care Team Description 03/29/2010 Bathhouse Attendant Report Medical Records [address] [place] [address] Destiney Lara MD Social History Tobacco Use [...] week 09/16/2021 How often do you attend [facility] or sabianism services? Never 09/16/2021 Do you belong to any clubs o r organizations such as lutheran groups, unions, fraternal or athletic groups, or [...] on filedocumented in this encounter Care Teams Rn Transplant Relationship Specialty Start Date End Date Marcelo Ortiz MD PCP - General 04/10/1999 05/16/15 Eloisa King MD PCP - General Internal Medicine 05/17/15 Ancelmo Whitney MD [address] [place] [address] PCP - General Internal Medicine 04/28/21 03/07/22 [facility], Pcp [address] [place] [address] PCP - General Internal Medicine 03/08/22 Tricia Simmons [address] [place] [address] Specialist Ophthalmology 09/16/21 Juan A Cristobal MD [address] [place] [address] Specialist Urology 09/16/21 Destiney Lara MD [address] [place] [address] Specialist Neurology 09/16/21 documented as of this encounter
--- OUTSIDE RECORDS SUMMARY | 2024-10-23 12:05 | XMS_ITS | Encounter Summary ---
Author Organization [facility] Address [address] [place] [address] Care Team Providers Care Mobile Paint Specialist Name Role Phone Marcelo Ortiz MD Primary Care Provider Unavail able Eloisa King MD Primary Care Provider Unavailable Ancelmo Whitney MD Primary Care Provider [phone] Tricia Simmons Unavailable Unavailable Juan A Cristobal MD Unavailable Unavailabl e Destiney Lara MD Unavailable [facility], Pcp Primary Care Provider Unavailabl e Encounter Details Date Type Department Care Team Description 05/21/2013 Halftone Operator Report Medical Records [address] [place] [address] Sahara Kelly MD Social History Tobacco Use [...] week 09/16/2021 How often do you attend [facility] or zoroastrian services? Never 09/16/2021 Do you belong to any clubs o r organizations such as confucianism groups, unions, fraternal or athletic groups, or [...] on filedocumented in this encounter Care Teams Mobile Paint Specialist Relationship Specialty Start Date End Date Marcelo Ortiz MD PCP - General 04/10/1999 05/16/15 Eloisa King MD PCP - General Internal Medicine 05/17/15 Ancelmo Whitney MD [address] [place] [address] PCP - General Internal Medicine 04/28/21 03/07/22 [facility] [address] [place] [address] PCP - General Internal Medicine 03/08/22 Tricia Simmons [address] [place] [address] Specialist Ophthalmology 09/16/21 Juan A Cristobal MD [address] [place] [address] Specialist Urology 09/16/21 Destiney Lara MD [address] [facility] [place] [address] Specialist Neurology 09/16/21 documented as of this encounter
--- OUTSIDE RECORDS SUMMARY | 2024-10-23 12:05 | XMS_ITS | Encounter Summary ---
Author Organization [facility] Address [address] [place] [address] Care Team Providers Care Funeral Driver Name Role Phone Eloisa King MD Primary Care Provider Unavailable Ancelmo Whitney MD Primary Care Provider [phone] Tricia Simmons Unavailable Unavailable Juan A Cristobal MD Unavailable Unavailabl e Destiney Lara MD Unavailable [facility], Pcp Primary Care Provider Unavailabl e Encounter Details Date Type Department Care Team Description 07/12/2017 Plaster Model And Mold Maker Report Medical Records [address] [place] [address] Juan A Cristobal MD Social History Tobacco Use Types Packs/Day [...] often do you attend [facility] or religion services? Never 09/16/2021 Do you belong to [...] on filedocumented in this encounter Care Teams Funeral Driver Relationship Specialty Start Date End Date Eloisa King MD PCP - General Internal Medicine 05/17/15 Ancelmo Whitney MD [address] [place] [address] PCP - General Internal Medicine 04/28/21 03/07/22 [facility], Pcp [address] [place] [address] PCP - General Internal Medicine 03/08/22 Tricia Simmons [address] [place] [address] Specialist Ophthalmology 09/16/21 Juan A Cristobal MD [address] [place] [address] Specialist Urology 09/16/21 Destiney Lara MD [address] [place] [address] Specialist Neurology 09/16/21 documented as of this encounter
--- OUTSIDE RECORDS SUMMARY | 2024-10-23 12:05 | XMS_ITS | Encounter Summary ---
Author Organization [facility] Address [address] [place] [address] Care Team Providers Care Operations And Maintenance Specialist Name Role Phone Eloisa King MD Primary Care Provider Unavailable Ancelmo Whitney MD Primary Care Provider Tricia Simmons Unavailable Unavailable Juan A Cristobal MD Unavailable Unavailabl e Destiney Lara MD Unavailable [facility], Pcp Primary Care Provider Unavailabl e Reason for Visit * Reason Onset Date Comments ear problems 02/24/2021 Encounter Details Date Type Department Care Team Description 02/24/[address] [facility] - [address] [address] Eloisa King MD ear problems Social History Tobacco Use Types Packs/Day Years [...] often do you attend chur ch or spiritism services? Never 09/16/2021 Do you belong to [...] encounter Miscellaneous Notes * Telephone Encounter - Nica Castano L.P.N. - 03/01/2021 10:13 AM EDT Patient c/o blocked ears requesting appointment Offered Appointment scheduled in our [facility] Ur[facility] -[address] [place] [address] -refused Requested [place] only First available given with Alba Marshall PA-C * Telephone Encounter - Samra Sigala - 03/01/2021 9:24 AM EDT Patient calling in about this again would like a call at [phone] * Telephone Encounter - Josephine Mcguire L.P.N. - 02/24/2021 4:06 PM EDT Busy Unable to speak with pt * Telephone Encounter - Jennifer Dianejune - 02/24/2021 2:44 PM EDT Symptoms patient is presenting: pt has blocked ears - looking for referral to ENT For ALL patients calling to schedule any appointment (routine, sick visit, follow up, consult, etc.) in the outpatient setting please ask the following questions: ?? Do you have fever of higher than 101, sore throat with difficulty swallowing or severe shortnessof breath? NO If YES to any of these above symptoms, send a message to triage and do not book. Red dot. If no, an audio or video visit should be booked. ?? Have you had close contact with someone with Coronavirus in the last 14 days? NO ?? Have you traveled abroad? NO ?? Have you traveled recently to another state outside of [place], [place], [place], [place], [place], [place], [place]? NO o If yes, did you quarantine for 14 days or have a negative covid test? NO If yes to any of the above, patient is not to be scheduled in office until after 14 day quarantine or negative covid test. If pain or injury related was it due to an accident at work or from a motor vehicle accident? NO If yes, gather 3rd libertarian insurance information Date of accident/Injury: How long has patient had these symptoms?: 3 days PCP: Eloisa King Payor: MEDICARE-[place] / Plan[place] / Product Type: MEDICARE [id number] documented in this encounter Plan of Treatment Not on file documented as of this encounter Visit Diagnoses Not on filedocumented in this encounter Care Teams Operations And Maintenance Specialist Relationship Specialty Start Date End Date Eloisa King MD PCP - General Internal Medicine 05/17/15 Ancelmo Whitney MD [address] [place] [address] PCP - General Internal Medicine 04/28/21 03/07/22 [facility], Pcp [address] [place] [address] PCP - General Internal Medicine 03/08/22 Tricia Simmons [address] [place] [address] Specialist Ophthalmology 09/16/21 Juan A Cristobal MD [address] [place] [address] Specialist Urology 09/16/21 Destiney Lara MD [address] [facility] [place] [address] Specialist Neurology 09/16/21 documented as of this encounter
--- OUTSIDE RECORDS SUMMARY | 2024-10-23 12:05 | XMS_ITS | Encounter Summary ---
Author Organization [facility] Address [address] [place] [address] Care Team Providers Care Gate Watch Name Role Phone Eloisa King MD Primary Care Provider Unavailable Ancelmo Whitney MD Primary Care Provider [phone] Tricia Simmons Unavailable Unavailable Juan A Cristobal MD Unavailable Unavailabl e Destiney Lara MD Unavailable [facility], Pcp Primary Care Provider Unavailabl e Reason for Visit * Reason Onset Date Comments er follow up 05/24/2016 Encounter Details Date Type Department Care Team Description 05/24/2016 Telephone Adult [facility] - [address] [address] Eloisa King MD er follow up Social History Tobacco Use Types Packs/Day Years [...] often do you attend chur ch or mu-ism services? Never 09/16/2021 Do you belong to [...] place to sleep or slept in a longterm (including now)? No 09/16/2021 Sex Assigned at Date Recorded Not on file documented as of this encounter Miscellaneous Notes * Telephone Encounter - Halina Jimenez L.P.N. - 05/24/2016 10:04 AM EST Pt booked 05/26 with Cindy please get er notes from [facility] * Telephone Encounter - Becky Davenport - 05/24/2016 9:35 AM EST See hospital follow up documented in this encounter Plan of Treatment Not on file documented as of this encounter Visit Diagnoses Not on filedocumented in this encounter Care Teams Gate Watch Relationship Specialty Start Date End Date Eloisa King MD PCP - General Internal Medicine 05/17/15 Ancelmo Whitney MD [address] [place] [address] PCP - General Internal Medicine 04/28/21 03/07/22 [facility], Daniel [address] [place] [address] PCP - General Internal Medicine 03/08/22 Tricia Simmons [address] [place] [address] Specialist Ophthalmology 09/16/21 Juan A Cristobal MD [address] [place] [address] Specialist Urology 09/16/21 Destiney Lara MD [address] [place] [address] Specialist Neurology 09/16/21 documented as of this encounter
--- OUTSIDE RECORDS SUMMARY | 2024-10-23 12:05 | XMS_ITS | Encounter Summary ---
Author Organization [facility] Address [address] [place] [address] Care Team Providers Care Tool Lapper Hand Name Role Phone Eloisa King MD Primary Care Provider Unavailable Ancelmo Whitney MD Primary Care Provider [phone] Tricia Simmons Unavailable Unavailable Juan A Cristobal MD Unavailable Unavailabl e Destiney Lara MD Unavailable [facility], Pcp Primary Care Provider Unavailabl e Encounter Details Date Type Department Care Team Description 03/25/2021 Assembler Golf Wood Head Report Medical Records [address] [place] [address] Social History Tobacco Use Types Packs/Day Years [...] week 09/16/2021 How often do you attend [facility] or mandaeism services? Never 09/16/2021 Do you belong to any clubs o r organizations such as mormon groups, unions, fraternal or athletic groups, or [...] on filedocumented in this encounter Care Teams Tool Lapper Hand Relationship Specialty Start Date End Date Eloisa King MD PCP - General Internal Medicine 05/17/15 Ancelmo Whitney MD [address] [place] [address] PCP - General Internal Medicine 04/28/21 03/07/22 [facility], Daniel [address] [place] [address] PCP - General Internal Medicine 03/08/22 Tricia Simmons [address] [place] [address] Specialist Ophthalmology 09/16/21 Juan A Cristobal MD [address] [place] [address] Specialist Urology 09/16/21 Destiney Lara MD [address] [place] [address] Specialist Neurology 09/16/21 documented as of this encounter
--- OUTSIDE RECORDS SUMMARY | 2024-10-23 12:05 | XMS_ITS | Encounter Summary ---
Author Organization [facility] Address [address] [place] [address] Phone Care Team Providers Care Lip And Gate Builder Name Role Phone Stacy Awan MD Primary Care Provider Encounter Details Date Type Department Care Team (Late st Contact Info) Description 10/21/2024 Office Communication [facility], [address] [place] [address] Serenity Salcedo [place] [address] [place] [address] Social History Tobacco Use Types [...] encounter Miscellaneous Notes * Telephone Encounter - Serenity Salcedo MA - 10/21/2024 11:18 AM EDT Thanks * Telephone Encounter - Serenity Salcedo MA - 10/21/2024 9:06 AM EDT Pt called in to reschedule her appt from [place] 5/19/and the next one available was 12/25/2024 if you can get something sooner plse and thank you [phone] documented in this encounter Plan of Treatment Upcoming Encounters Date Type Department Care Team (Late st Contact Info) Description 11/10/2024 3:00 PM EDT Office Visit [facility] [address] [place] [address] Edgar Aguilar MD [address] [place] [address] [place] [phone] documented as of this encounter Visit Diagnoses Not on filedocumented in this encounter Care Teams Lip And Gate Builder Relationship Specialty Start Date End Date Stacy Awan MD [address] [place] [address] PCP - General Internal Medicine 01/23/23 documented as of this encounter
--- OUTSIDE RECORDS SUMMARY | 2024-10-23 12:05 | XMS_ITS | Encounter Summary ---
Author Organization [facility] Address [address] [place] [address] Care Team Providers Care Fishing Boat Mate Name Role Phone Marcelo Ortiz MD Primary Care Provider Unavail able Eloisa King MD Primary Care Provider Unavailable Ancelmo Whitney MD Primary Care Provider [phone] Tricia Simmons Unavailable Unavailable Juan A Cristobal MD Unavailable Unavailabl e Destiney Lara MD Unavailable [facility], Pcp Primary Care Provider Unavailabl e Encounter Details Date Type Department Care Team Description 05/26/2014 Biopsychologist Report Medical Records [address] [place] [address] Shaheen Gonzalez Social History Tobacco Use Types Packs/Day Years [...] week 09/16/2021 How often do you attend [facility] or voodoo services? Never 09/16/2021 Do you belong to [...] place to sleep or slept in a [place] [facility] (including now)? No 09/16/2021 Sex Assigned at Date Recorded Not on file documented as of this encounter Plan of Treatment Not on file documented as of this encounter Visit Diagnoses Not on filedocumented in this encounter Care Teams Fishing Boat Mate Relationship Specialty Start Date End Date Marcelo Ortiz MD PCP - General 04/10/1999 05/16/15 Eloisa King MD PCP - General Internal Medicine 05/17/15 Ancelmo Whitney MD [address] [place] [address] PCP - General Internal Medicine 04/28/21 03/07/22 [facility] [address] [place] [address] PCP - General Internal Medicine 03/08/22 Tricia Simmons [address] [place] [address] Specialist Ophthalmology 09/16/21 Juan A Cristobal MD [address] [place] [address] Specialist Urology 09/16/21 Destiney Lara MD [address] [place] [address] Specialist Neurology 09/16/21 documented as of this encounter
--- OUTSIDE RECORDS SUMMARY | 2024-10-23 12:05 | XMS_ITS | Encounter Summary ---
Author Organization [facility], Address [address] [place] [address] Phone Care Team Providers Care Iron Worker Name Role Phone Stacy Awan MD Primary Care Provider [phone] Reason for Visit * Reason Comments Med Refill Encounter Details Date Type Department Care Team (Late st Contact Info) Description 06/29/2022 Refill [facility] [address] [place] [phone] Romeo Dozier PA Social History Tobacco Use [...] Visit [facility] [address] [place] [phone] Edgar Aguilar MD [address] [place] [address] [place] [phone] documented as of this encounter Visit Diagnoses Not on filedocumented in this encounter Care Teams Iron Worker Relationship Specialty Start Date End Date Stacy Awan MD [address] [place] [address] PCP - General Internal Medicine 01/23/23 documented as of this encounter
--- OUTSIDE RECORDS SUMMARY | 2024-10-23 12:05 | XMS_ITS | Encounter Summary ---
Author Organization [facility] Address [address] [place] [address] Care Team Providers Care Trust Administrator Name Role Phone Eloisa King MD Primary Care Provider Unavailable Ancelmo Whitney MD Primary Care Provider [phone] Tricia Simmons Unavailable Unavailable Juan A Cristobal MD Unavailable Unavailabl e Destiney Lara MD Unavailable [facility], Pcp Primary Care Provider Unavailabl e Encounter Details Date Type Department Care Team Description 09/10/2017 Abstract Searcher Report Medical Records [address] [place] [address] Karlene Jacome [address] [place] [address] Social History Tobacco Use Types Packs/Day Years [...] often do you attend chur ch or yazdanism services? Never 09/16/2021 Do you belong to any clubs o r organizations such as sabianism groups, unions, fraternal or athletic groups, or [...] place to sleep or slept in a detention (including now)? No 09/16/2021 Sex Assigned at Date Recorded Not on file documented as of this encounter Plan of Treatment Not on file documented as of this encounter Visit Diagnoses Not on filedocumented in this encounter Care Teams Trust Administrator Relationship Specialty Start Date End Date Eloisa King MD PCP - General Internal Medicine 05/17/15 Ancelmo Whitney MD [address] [place] [address] PCP - General Internal Medicine 04/28/21 03/07/22 [facility], Pcp [address] [place] [address] PCP - General Internal Medicine 03/08/22 Tricia Simmons [address] [place] [address] Specialist Ophthalmology 09/16/21 Juan A Cristobal MD [address] [place] [address] Specialist Urology 09/16/21 Destiney Lara MD [address] [place] [address] Specialist Neurology 09/16/21 documented as of this encounter
--- OUTSIDE RECORDS SUMMARY | 2024-10-23 12:05 | XMS_ITS | Encounter Summary ---
Author Organization [facility] Address [address] [place] [address] Care Team Providers Care Continuing Education Instructor Name Role Phone Eloisa King MD Primary Care Provider Unavailable Ancelmo Whitney MD Primary Care Provider Tricia Simmons Unavailable Unavailable Juan A Cristobal MD Unavailable Unavailabl e Destiney Lara MD Unavailable [facility], Pcp Primary Care Provider Unavailabl e Reason for Visit * Reason Onset Date Comments er follow up 02/08/2016 [facility] Encounter Details Date Type Department Care Team Description 02/08/2016 Telephone Adult Medicine - [address] [address] Eloisa King MD er follow up ([facility]) Social History Tobacco Use Types Packs/Day Years [...] often do you attend chur ch or jain services? Never 09/16/2021 Do you belong to any clubs o r organizations such as baptist groups, unions, fraternal or athletic groups, or [...] encounter Miscellaneous Notes * Telephone Encounter - Latia Lynn - 02/09/2016 9:14 AM EDT Appt booked please request notes [facility] * Telephone Encounter - Coretta Nelson R.N. - 02/08/2016 4:57 PM EDT Please schedule an ER follow up appointment. * Telephone Encounter - Latia Lynn - 02/08/2016 9:45 AM EDT See attached letter documented in this encounter Plan of Treatment Not on file documented as of this encounter Visit Diagnoses Not on filedocumented in this encounter Care Teams Continuing Education Instructor Relationship Specialty Start Date End Date Eloisa King MD PCP - General Internal Medicine 05/17/15 Ancelmo Whitney MD [address] [place] [address] PCP - General Internal Medicine 04/28/21 03/07/22 [facility], Pcp [address] [place] [address] PCP - General Internal Medicine 03/08/22 Tricia Simmons [address] [place] [address] Specialist Ophthalmology 09/16/21 Juan A Cristobal MD [address] [place] [address] Specialist Urology 09/16/21 Destiney Lara MD [address] [place] [address] Specialist Neurology 09/16/21 documented as of this encounter
--- OUTSIDE RECORDS SUMMARY | 2024-10-23 12:05 | XMS_ITS | Encounter Summary ---
Author Organization [facility] Address [address] [place] [address] Care Team Providers Care Bass Fisher Name Role Phone Eloisa King MD Primary Care Provider Unavailable Ancelmo Whitney MD Primary Care Provider Tricia Simmons Unavailable Unavailable Juan A Cristobal MD Unavailable Unavailabl e Destiney Lara MD Unavailable [facility], Pcp Primary Care Provider Unavailabl e Encounter Details Date Type Department Care Team Description 03/18/2020 Operations And Maintenance Supervisor Report Medical Records [address] [place] [address] Social History Tobacco Use Types Packs/Day Years [...] How often do you attend [facility] or orthodox services? Never 09/16/2021 Do you belong to any clubs o r organizations such as samaritan groups, unions, fraternal or athletic groups, or [...] on filedocumented in this encounter Care Teams Bass Fisher Relationship Specialty Start Date End Date Eloisa King MD PCP - General Internal Medicine 05/17/15 Ancelmo Whitney MD [address] [place] [address] PCP - General Internal Medicine 04/28/21 03/07/22 Akbar, Daniel [address] [place] [address] PCP - General Internal Medicine 03/08/22 Tricia Simmons [address] [place] [address] Specialist Ophthalmology 09/16/21 Juan A Cristobal MD [address] [place] [address] Specialist Urology 09/16/21 Destiney Lara MD [address] [place] [address] Specialist Neurology 09/16/21 documented as of this encounter
--- OUTSIDE RECORDS SUMMARY | 2024-10-23 12:05 | XMS_ITS | Encounter Summary ---
Author Organization [facility], Address [address] [place] [address] Phone Care Team Providers Care Pyrometer Temperature Regulator Name Role Phone Stacy Awan MD Primary Care Provider [phone] Encounter Details Date Type Department Care Team (Late st Contact Info) Description 02/02/2022 Documentation Only [facility], [address] [place] [place] [address] Edgar Aguilar MD [address] [place] [address] [place] [address] Social History Tobacco Use Types [...] Visit [facility] [address] [facility] [place] [address] Edgar Aguilar MD [address] [place] [address] [place] [address] documented as of this encounter Visit Diagnoses Not on filedocumented in this encounter Care Teams Pyrometer Temperature Regulator Relationship Specialty Start Date End Date Stacy Awan MD [address] [place] [address] PCP - General Internal Medicine 01/23/23 documented as of this encounter
--- OUTSIDE RECORDS SUMMARY | 2024-10-23 12:05 | XMS_ITS | Encounter Summary ---
Author Organization [facility] Address [address] [place] [address] Care Team Providers Care Sanitary Landfill Operator Name Role Phone Eloisa King MD Primary Care Provider Unavailable Ancelmo Whitney MD Primary Care Provider [phone] Tricia Simmons Unavailable Unavailable Juan A Cristobal MD Unavailable Unavailabl e Destiney Lara MD Unavailable [facility], Pcp Primary Care Provider Unavailabl e Encounter Details Date Type Department Care Team Description 09/28/2016 Awning Installer Report Medical Records [address] [place] [address] Destiney Lara MD Social History Tobacco Use [...] How often do you attend [facility] or anabaptism services? Never 09/16/2021 Do you belong to [...] place to sleep or slept in a [facility] (including now)? No 09/16/2021 Sex Assigned at Date Recorded Not on file documented as of this encounter Plan of Treatment Not on file documented as of this encounter Visit Diagnoses Not on filedocumented in this encounter Care Teams Sanitary Landfill Operator Relationship Specialty Start Date End Date Eloisa King MD PCP - General Internal Medicine 05/17/15 Ancelmo Whitney MD [address] [place] [address] PCP - General Internal Medicine 04/28/21 03/07/22 [facility], Pcp [address] [place] [address] PCP - General Internal Medicine 03/08/22 Tricia Simmons [address] [place] [address] Specialist Ophthalmology 09/16/21 Juan A Cristobal MD [address] [place] [address] Specialist Urology 09/16/21 Destiney Lara MD [address] [place] [address] Specialist Neurology 09/16/21 documented as of this encounter
--- OUTSIDE RECORDS SUMMARY | 2024-10-23 12:05 | XMS_ITS | Encounter Summary ---
Author Organization [facility] Address [address] [place] [address] Care Team Providers Care Dental Laboratory Manager Name Role Phone Eloisa King MD Primary Care Provider Unavailable Ancelmo Whitney MD Primary Care Provider [phone] Tricia Simmons Unavailable Unavailable Juan A Cristobal MD Unavailable Unavailabl e Destiney Lara MD Unavailable [facility], Pcp Primary Care Provider Unavailabl e Encounter Details Date Type Department Care Team Description 09/10/2015 Business Doc Medical Records [address] [place] [address] Abstract, Provider Social History Tobacco Use Types [...] week 09/16/2021 How often do you attend [facility] or taoist services? Never 09/16/2021 Do you belong to [...] on filedocumented in this encounter Care Teams Dental Laboratory Manager Relationship Specialty Start Date End Date Eloisa King MD PCP - General Internal Medicine 05/17/15 Ancelmo Whitney MD [address] [place] [address] PCP - General Internal Medicine 04/28/21 03/07/22 [facility], Pcp [address] [place] [address] PCP - General Internal Medicine 03/08/22 Tricia Simmons [address] [place] [address] Specialist Ophthalmology 09/16/21 Juan A Cristobal MD [address] [place] [address] Specialist Urology 09/16/21 Destiney Lara MD [address] [place] [address] Specialist Neurology 09/16/21 documented as of this encounter
--- OUTSIDE RECORDS SUMMARY | 2024-10-23 12:05 | XMS_ITS | Encounter Summary ---
Author Organization [facility], Address [address] [place] [address] Phone Care Team Providers Care Programmer Operator Numerical Control Name Role Phone Stacy Awan MD Primary Care Provider [phone] Reason for Visit * Reason Comments Med Refill Encounter Details Date Type Department Care Team (Late st Contact Info) Description 03/29/2021 Refill [facility] [address] [place] [phone] Romeo Dozier PA Social History Tobacco Use [...] Visit [facility] [address] [place] [phone] Edgar Aguilar MD [address] [place] [address] [place] [phone] documented as of this encounter Visit Diagnoses Not on filedocumented in this encounter Care Teams Programmer Operator Numerical Control Relationship Specialty Start Date End Date Stacy Awan MD [address] [place] [address] PCP - General Internal Medicine 01/23/23 documented as of this encounter
--- OUTSIDE RECORDS SUMMARY | 2024-10-23 12:05 | XMS_ITS | Encounter Summary ---
Author Organization [facility] Address [address] [place] [address] Care Team Providers Care Proof Coins Inspector Name Role Phone Eloisa King MD Primary Care Provider Unavailable Ancelmo Whitney MD Primary Care Provider [phone] Tricia Simmons Unavailable Unavailable Juan A Cristobal MD Unavailable Unavailabl e Destiney Lara MD Unavailable [facility], Pcp Primary Care Provider Unavailabl e Encounter Details Date Type Department Care Team Description 10/17/2017 Customer Technical Services Manager Report Medical Records [address] [place] [address] Juan A Cristobal MD Social History Tobacco [...] you attend [facility] or caodaism services? Never 09/16/2021 Do you belong to any clubs o r organizations such as worship groups, unions, fraternal or athletic groups, or [...] on filedocumented in this encounter Care Teams Proof Coins Inspector Relationship Specialty Start Date End Date Eloisa King MD PCP - General Internal Medicine 05/17/15 Ancelmo Whitney MD [address] [place] [address] PCP - General Internal Medicine 04/28/21 03/07/22 [facility], Pcp [address] [place] [address] PCP - General Internal Medicine 03/08/22 Tricia Simmons [address] [place] [address] Specialist Ophthalmology 09/16/21 Juan A Cristobal MD [address] [place] [address] Specialist Urology 09/16/21 Destiney Lara MD [address] [place] [address] Specialist Neurology 09/16/21 documented as of this encounter
--- OUTSIDE RECORDS SUMMARY | 2024-10-23 12:06 | XMS_ITS | Encounter Summary ---
Author Organization [facility] Address [address] [place] [address] Care Team Providers Care Skin Care Consultant Name Role Phone Eloisa King MD Primary Care Provider Unavailable Ancelmo Whitney MD Primary Care Provider [phone] Tricia Simmons Unavailable Unavailable Juan A Cristobal MD Unavailable Unavailabl e Destiney Lara MD Unavailable [facility], Pcp Primary Care Provider Unavailabl e Encounter Details Date Type Department Care Team Description 02/11/2019 Hat Forming Machine Feeder Report Medical Records [address] [place] [address] Karlene Jacome [address] [place] [address] Social History Tobacco Use Types Packs/Day Years [...] often do you attend chur ch or orthodoxy services? Never 09/16/2021 Do you belong to any clubs o r organizations such as holiness groups, unions, fraternal or athletic groups, or [...] place to sleep or slept in a penitentiary (including now)? No 09/16/2021 Sex Assigned at Date Recorded Not on file documented as of this encounter Plan of Treatment Not on file documented as of this encounter Visit Diagnoses Not on filedocumented in this encounter Care Teams Skin Care Consultant Relationship Specialty Start Date End Date Eloisa King MD PCP - General Internal Medicine 05/17/15 Ancelmo Whitney MD [address] [place] [address] PCP - General Internal Medicine 04/28/21 03/07/22 [facility], Pcp [address] [place] [address] PCP - General Internal Medicine 03/08/22 Tricia Simmons [address] [place] [address] Specialist Ophthalmology 09/16/21 Juan A Cristobal MD [address] [place] [address] Specialist Urology 09/16/21 Destiney Lara MD [address] [place] [address] Specialist Neurology 09/16/21 documented as of this encounter
--- OUTSIDE RECORDS SUMMARY | 2024-10-23 12:06 | XMS_ITS | Encounter Summary ---
Author Organization [facility] Address [address] [place] [address] Care Team Providers Care Torch Straightener And Heater Name Role Phone Ant Brewer NP Primary Care Provider [phone] Encounter Details Date Type Department Care Team (Late st Contact Info) Description 07/09/2024 Lab Requisition [facility] Main [facility] [address] [facility] [place] [address] Ant Brewer NP [facility] [address] [place] [address] Urinary tract infection, site not specified Social [...] Escherichia coli(A) JENNY 07/11/2024 9:[address] [facility] Urine Urine specimen obtained by [...] MICROBIOLOGY - GENERAL ORDER MELISSA Final Result [facility] [address] [place] [address], [place] [phone] * (ABNORMAL) Urinalysis with reflex microscopic and culture (07/08/2024 2:00 PM EST) Pathologist [facility] Specific [place] Urine 1.009 1.003 - 1.030 LAB URINALYSIS - AUTOMATED METHOD 07/09/2024 10:[address] [facility] pH, Urine 6.0 5.0 - 8.0 pH LAB URINALYSIS - AUTOMATED METHOD 07/09/2024 10:[address] [facility] Leukocytes, Urine Large(A) Negative LAB URINALYSIS - AUTOMATED METHOD 07/09/2024 10:[address] [facility] Nitrite, Urine Negative Negative LAB URINALYSIS - AUTOMATED METHOD 07/09/2024 10:[address] [facility] Protein, Urine Trace <=Trace mg/dL LAB URINALYSIS - AUTOMATED METHOD 07/09/2024 10:[address] [facility] Glucose, Urine Negative Negative mg/dL LAB URINALYSIS - AUTOMATED METHOD 07/09/2024 10:[address] [facility] Ketones, Urine Negative Negative mg/dL LAB URINALYSIS - AUTOMATED METHOD 07/09/2024 10:[address] [facility] Urobilinogen, Urine 0.2 0.2 - 1.0 mg/dL LAB URINALYSIS - AUTOMATED METHOD 07/09/2024 10:[address] [facility] Bilirubin, Urine Negative Negative LAB URINALYSIS - AUTOMATED METHOD 07/09/2024 10:[address] [facility] Blood, Urine Negative Negative LAB URINALYSIS - AUTOMATED METHOD 07/09/2024 10:[address] [facility] RBC, Urine 1.9 0 - 4 /HPF LAB URINALYSIS - AUTOMATED METHOD 07/09/2024 10:[address] [facility] WBC, Urine 186.4(H) 0 - 4 /HPF LAB URINALYSIS - AUTOMATED METHOD 07/09/2024 10:[address] [facility] Squamous Epithelial, Urine 12 0 - 60 /LPF LAB URINALYSIS - AUTOMATED METHOD 07/09/2024 10:[address] [facility] Bacteria, Urine Many(A) Negative /HPF LAB URINALYSIS - AUTOMATED METHOD 07/09/2024 10:[address] [facility] Hyaline Casts, Urine 0.41 0 - 3 /LPF LAB URINALYSIS - AUTOMATED METHOD 07/09/2024 10:[address] [facility] Urine Urine specimen obtained by clean catch procedure / Unknown 07/08/2024 2:00 PM EST 07/09/2024 9:25 AM EST us Ant Brewer NP LAB URINE ORDERABLES Final Resul t Performing Organization Address City/[facility]/ZIP Co de Phone Number [facility] [address] [place] [address], [place] [phone] * Pearson urine culture tube (07/08/2024 2:00 PM EST) Extra Tube Hold for add-ons. 07/09/2024 11:[address] [facility] Comment:Auto resulted. Urine Urine specimen obtained by clean catch procedure / Unknown 07/08/2024 2:00 PM EST 07/09/2024 9:25 AM EST us Ant Brewer NP LAB URINE ORDERABLES Final Resul t Performing Organization Address [facility] Co de Phone Number [facility] [address] [place] [address], [place] [phone] documented in this encounter Visit Diagnoses Diagnosis Urinary tract infection, site not specified documented in this encounter Care Teams Torch Straightener And Heater Relationship Specialty Start Date End Date Ant Brewer NP [facility] [address] [place] [address] PCP - General Nurse Practitioner 07/09/24 documented as of this encounter
--- OUTSIDE RECORDS SUMMARY | 2024-10-23 12:06 | XMS_ITS | Encounter Summary ---
Author Organization [facility] Address [address] [place] [address] Care Team Providers Care Sebd Teacher Name Role Phone Marcelo Ortiz MD Primary Care Provider Unavail able Eloisa King MD Primary Care Provider Unavailable Ancelmo Whitney MD Primary Care Provider [phone] Tricia Simmons Unavailable Unavailable Juan A Cristobal MD Unavailable Unavailabl e Destiney Lara MD Unavailable [facility], Pcp Primary Care Provider Unavailabl e Encounter Details Date Type Department Care Team Description 07/21/2014 Ocular Care Technologist Report Medical Records [address] [place] [id number] Gina Jamison Social History Tobacco Use Types Packs/Day Years [...] week 09/16/2021 How often do you attend [facility] or holiness services? Never 09/16/2021 Do you belong to any clubs o r organizations such as sikh groups, unions, fraternal or athletic groups, or [...] on filedocumented in this encounter Care Teams Sebd Teacher Relationship Specialty Start Date End Date Marcelo Ortiz MD PCP - General 04/10/1999 05/16/15 Eloisa King MD PCP - General Internal Medicine 05/17/15 Ancelmo Whitney MD [address] [place] [address] PCP - General Internal Medicine 04/28/21 03/07/22 [facility] [address] [place] [address] PCP - General Internal Medicine 03/08/22 Tricia Simmons [address] [place] [address] Specialist Ophthalmology 09/16/21 Juan A Cristobal MD [address] [place] [address] Specialist Urology 09/16/21 Destiney Lara MD [address] [place] [address] Specialist Neurology 09/16/21 documented as of this encounter
--- OUTSIDE RECORDS SUMMARY | 2024-10-23 12:06 | XMS_ITS | Encounter Summary ---
Author Organization [facility] Address [address] [place] [address] Care Team Providers Care Card Hanger Name Role Phone Marcelo Ortiz MD Primary Care Provider Unavail able Eloisa King MD Primary Care Provider Unavailable Ancelmo Whitney MD Primary Care Provider [phone] Tricia Simmons Unavailable Unavailable Juan A Cristobal MD Unavailable Unavailabl e Destiney Lara MD Unavailable [facility], Pcp Primary Care Provider Unavailabl e Encounter Details Date Type Department Care Team Description 06/08/2010 Hospital Medical Records [address] [place] [id number] Juan Whitehead MD Social History Tobacco Use Types Packs/Day [...] often do you attend chur ch or jewish services? Never 09/16/2021 Do you belong to [...] place to sleep or slept in a nursing home (including now)? No 09/16/2021 Sex Assigned at Date Recorded Not on file documented as of this encounter Plan of Treatment Not on file documented as of this encounter Visit Diagnoses Not on filedocumented in this encounter Care Teams Card Hanger Relationship Specialty Start Date End Date Marcelo Ortiz MD PCP - General 04/10/1999 05/16/15 Eloisa King MD PCP - General Internal Medicine 05/17/15 Ancelmo Whitney MD [address] [place] [address] PCP - General Internal Medicine 04/28/21 03/07/22 [facility], Pcp [address] [place] [address] PCP - General Internal Medicine 03/08/22 Tricia Simmons [address] [place] [address] Specialist Ophthalmology 09/16/21 Juan A Cristobal MD [address] [facility] [place] [address] Specialist Urology 09/16/21 Destiney Lara MD [address] [place] [address] Specialist Neurology 09/16/21 documented as of this encounter
--- OUTSIDE RECORDS SUMMARY | 2024-10-23 12:06 | XMS_ITS | Encounter Summary ---
Author Organization [facility] Address [address] [place] [address] Care Team Providers Care Group Captain Name Role Phone Marcelo Ortiz MD Primary Care Provider Unavail able Eloisa King MD Primary Care Provider Unavailable Ancelmo Whitney MD Primary Care Provider [phone] Tricia Simmons Unavailable Unavailable Juan A Cristobal MD Unavailable Unavailabl e Destiney Lara MD Unavailable [facility], Pcp Primary Care Provider Unavailabl e Encounter Details Date Type Department Care Team Description 07/05/2010 Panel Maker Report Medical Records [address] [place] [address] Slim Trammell [facility] [place] [address] Social History Tobacco Use Types Packs/Day Years [...] often do you attend chur ch or amish services? Never 09/16/2021 Do you belong to any clubs o r organizations such as gnosticism groups, unions, fraternal or athletic groups, or [...] place to sleep or slept in a long term (including now)? No 09/16/2021 Sex Assigned at Date Recorded Not on file documented as of this encounter Plan of Treatment Not on file documented as of this encounter Visit Diagnoses Not on filedocumented in this encounter Care Teams Group Captain Relationship Specialty Start Date End Date Marcelo Ortiz MD PCP - General 04/10/1999 05/16/15 Eloisa King MD PCP - General Internal Medicine 05/17/15 Ancelmo Whitney MD [address] [place] [address] PCP - General Internal Medicine 04/28/21 03/07/22 [facility], Pcp [address] [place] [address] PCP - General Internal Medicine 03/08/22 Tricia Simmons [address] [place] [address] Specialist Ophthalmology 09/16/21 Juan A Cristobal MD [address] [place] [address] Specialist Urology 09/16/21 Destiney Lara MD [address] [place] [address] Specialist Neurology 09/16/21 documented as of this encounter
--- OUTSIDE RECORDS SUMMARY | 2024-10-23 12:06 | XMS_ITS | Encounter Summary ---
Author Organization [facility] Address [address] [place] [address] Care Team Providers Care Hand Wood Sander Name Role Phone Marcelo Ortiz MD Primary Care Provider Unavail able Eloisa King MD Primary Care Provider Unavailable Ancelmo Whitney MD Primary Care Provider [phone] Tricia Simmons Unavailable Unavailable Juan A Cristobal MD Unavailable Unavailabl e Destiney Lara MD Unavailable [facility], Pcp Primary Care Provider Unavailabl e Encounter Details Date Type Department Care Team Description 11/20/2013 Rn Building Report Medical Records [address] [place] [address] Emma Hodge MD Social History Tobacco Use [...] do you attend [facility] or methodist services? Never 09/16/2021 Do you belong to [...] on filedocumented in this encounter Care Teams Hand Wood Sander Relationship Specialty Start Date End Date Marcelo Ortiz MD PCP - General 04/10/1999 05/16/15 Eloisa King MD PCP - General Internal Medicine 05/17/15 Ancelmo Whitney MD [address] [place] [address] PCP - General Internal Medicine 04/28/21 03/07/22 [facility] [address] [place] [address] PCP - General Internal Medicine 03/08/22 Tricia Simmons [address] [place] [address] Specialist Ophthalmology 09/16/21 Juan A Cristobal MD [address] [place] [address] Specialist Urology 09/16/21 Destiney Lara MD [address] [facility] [place] [address] Specialist Neurology 09/16/21 documented as of this encounter
--- OUTSIDE RECORDS SUMMARY | 2024-10-23 12:06 | XMS_ITS | Encounter Summary ---
Author Organization [facility] Address [address] [place] [address] Care Team Providers Care Animator Name Role Phone Eloisa King MD Primary Care Provider Unavailable Ancelmo Whitney MD Primary Care Provider [phone] Tricia Simmons Unavailable Unavailable Juan A Cristobal MD Unavailable Unavailabl e Destiney Lara MD Unavailable [facility], Pcp Primary Care Provider Unavailabl e Encounter Details Date Type Department Care Team Description 09/03/2020 Pharmacy Technician Program Director Report Medical Records [address] [place] [address] Edgar Aguilar MD, MD Social History Tobacco [...] week 09/16/2021 How often do you attend [facility] or church services? Never 09/16/2021 Do you belong to [...] on filedocumented in this encounter Care Teams Animator Relationship Specialty Start Date End Date Eloisa King MD PCP - General Internal Medicine 05/17/15 Ancelmo Whitney MD [address] [place] [address] PCP - General Internal Medicine 04/28/21 03/07/22 [facility], Pcp [address] [place] [address] PCP - General Internal Medicine 03/08/22 Tricia Simmons [address] [place] [address] Specialist Ophthalmology 09/16/21 Juan A Cristobal MD [address] [place] [address] Specialist Urology 09/16/21 Destiney Lara MD [address] [place] [address] Specialist Neurology 09/16/21 documented as of this encounter
--- OUTSIDE RECORDS SUMMARY | 2024-10-23 12:06 | XMS_ITS | Encounter Summary ---
Author Organization [facility] Address [address] [place] [address] Care Team Providers Care Pharmacy Graduate Intern Name Role Phone Ancelmo Whitney MD Primary Care Provider Tricia Simmons Unavailable Unavailable Juan A Cristobal MD Unavailable Unavailabl e Destiney Lara MD [facility] Primary Care Provider Unavailabl e Encounter Details Date Type Department Care Team Description 08/26/2021 Pediatric Speech Therapist Report Medical Records [address] [place] [address] Social History Tobacco Use Types Packs/Day Years [...] week 09/16/2021 How often do you attend [facility] or temple services? Never 09/16/2021 Do you belong to any clubs o r organizations such as anabaptist groups, unions, fraternal or athletic groups, or [...] place to sleep or slept in a assisted (including now)? No 09/16/2021 Sex Assigned at Date Recorded Not on file documented as of this encounter Plan of Treatment Not on file documented as of this encounter Visit Diagnoses Not on filedocumented in this encounter Care Teams Pharmacy Graduate Intern Relationship Specialty Start Date End Date Ancelmo Whitney MD [address] [place] [address] PCP - General Internal Medicine 04/28/21 03/07/22 [facility], Pcp [address] [place] [address] PCP - General Internal Medicine 03/08/22 Tricia Simmons [address] [place] [address] Specialist Ophthalmology 09/16/21 Juan A Cristobal MD [address] [place] [address] Specialist Urology 09/16/21 Destiney Lara MD [address] [place] [address] Specialist Neurology 09/16/21 documented as of this encounter
--- OUTSIDE RECORDS SUMMARY | 2024-10-23 12:06 | XMS_ITS | Encounter Summary ---
Author Organization [facility] Address [address] [place] [address] Care Team Providers Care Faculty Criminal Justice Name Role Phone Ancelmo Whitney MD Primary Care Provider [phone] Tricia Simmons Unavailable Unavailable Juan A Cristobal MD Unavailable Unavailabl e Destiney Lara MD [facility] Primary Care Provider Unavailabl e Encounter Details Date Type Department Care Team Description 06/24/2021 Monument Stonecutter Report Medical Records [address] [place] [address] Social History Tobacco Use Types Packs/Day Years [...] [facility] or anglican services? Never 09/16/2021 Do you belong to [...] on filedocumented in this encounter Care Teams Faculty Criminal Justice Relationship Specialty Start Date End Date Ancelmo Whitney MD [address] [place] [address] PCP - General Internal Medicine 04/28/21 03/07/22 [facility], Pcp [address] [place] [address] PCP - General Internal Medicine 03/08/22 Tricia Simmons [address] [place] [address] Specialist Ophthalmology 09/16/21 Juan A Cristobal MD [address] [place] [address] Specialist Urology 09/16/21 Destiney Lara MD [address] [place] [address] Specialist Neurology 09/16/21 documented as of this encounter
--- OUTSIDE RECORDS SUMMARY | 2024-10-23 12:06 | XMS_ITS | Encounter Summary ---
Author Organization [facility] Address [address] [place] [address] Care Team Providers Care Plumbing Assembler Installer Name Role Phone Eloisa King MD Primary Care Provider Unavailable Ancelmo Whitney MD Primary Care Provider [phone] Tricia Simmons Unavailable Unavailable Juan A Cristobal MD Unavailable Unavailabl e Destiney Lara MD Unavailable [facility], Pcp Primary Care Provider Unavailabl e Encounter Details Date Type Department Care Team Description 11/06/2018 Laster Hand Report Medical Records [address] [place] [address] Juan A Cristobal MD Social History Tobacco [...] often do you attend [facility] or episcopal services? Never 09/16/2021 Do you belong to any clubs o r organizations such as yazidi groups, unions, fraternal or athletic groups, or [...] on filedocumented in this encounter Care Teams Plumbing Assembler Installer Relationship Specialty Start Date End Date Eloisa King MD PCP - General Internal Medicine 05/17/15 Ancelmo Whitney MD [address] [place] [address] PCP - General Internal Medicine 04/28/21 03/07/22 [facility], Pcp [address] [place] [address] PCP - General Internal Medicine 03/08/22 Tricia Simmons [address] [place] [address] Specialist Ophthalmology 09/16/21 Juan A Cristobal MD [address] [place] [address] Specialist Urology 09/16/21 Destiney Lara MD [address] [place] [address] Specialist Neurology 09/16/21 documented as of this encounter
--- OUTSIDE RECORDS SUMMARY | 2024-10-23 12:06 | XMS_ITS | Encounter Summary ---
Author Organization [facility] Address [address] [place] [address] Care Team Providers Care School Janitor Name Role Phone Eloisa King MD Primary Care Provider Unavailable Ancelmo Whitney MD Primary Care Provider [phone] Tricia Simmons Unavailable Unavailable Juan A Cristobal MD Unavailable Unavailabl e Destiney Lara MD Unavailable [facility], Pcp Primary Care Provider Unavailabl e Encounter Details Date Type Department Care Team Description 12/26/2019 Stock Sorter Report Medical Records [address] [place] [address] Abstract, Provider Social History Tobacco Use Types [...] 09/16/2021 How often do you attend [facility] or yazdanism services? Never 09/16/2021 Do you belong to any clubs o r organizations such as taoist groups, unions, fraternal or athletic groups, or [...] on filedocumented in this encounter Care Teams School Janitor Relationship Specialty Start Date End Date Eloisa King MD PCP - General Internal Medicine 05/17/15 Ancelmo Whitney MD [address] [place] [address] PCP - General Internal Medicine 04/28/21 03/07/22 [facility], Pcp [address] [place] [address] PCP - General Internal Medicine 03/08/22 Tricia Simmons [address] [place] [address] Specialist Ophthalmology 09/16/21 Juan A Cristobal MD [address] [place] [address] Specialist Urology 09/16/21 Destiney Lara MD [address] [place] [address] Specialist Neurology 09/16/21 documented as of this encounter
--- OUTSIDE RECORDS SUMMARY | 2024-10-23 12:06 | XMS_ITS | Encounter Summary ---
Author Organization [facility] Address [address] [place] [address] Care Team Providers Care Jewelry Inspector Name Role Phone Eloisa King MD Primary Care Provider Unavailable Ancelmo Whitney MD Primary Care Provider [phone] Tricia Simmons Unavailable Unavailable Juan A Cristobal MD Unavailable Unavailabl e Destiney Lara MD Unavailable [facility], Pcp Primary Care Provider Unavailabl e Encounter Details Date Type Department Care Team Description 10/02/2019 Mergers And Acquisitions Attorney Report Medical Records [address] [place] [address] Abstract, Provider Social History Tobacco Use Types [...] 09/16/2021 How often do you attend [facility] or episcopal services? Never 09/16/2021 Do you [...] place to sleep or slept in a halfway (including now)? No 09/16/2021 Sex Assigned at Date Recorded Not on file documented as of this encounter Plan of Treatment Not on file documented as of this encounter Visit Diagnoses Not on filedocumented in this encounter Care Teams Jewelry Inspector Relationship Specialty Start Date End Date Eloisa King MD PCP - General Internal Medicine 05/17/15 Ancelmo Whitney MD [address] [place] [address] PCP - General Internal Medicine 04/28/21 03/07/22 [facility], Pcp [address] [facility] [place] [address] PCP - General Internal Medicine 03/08/22 Tricia Simmons [address] [facility] [place] [address] Specialist Ophthalmology 09/16/21 Juan A Cristobal MD [address] [place] [address] Specialist Urology 09/16/21 Destiney Lara MD [address] [facility] [place] [address] Specialist Neurology 09/16/21 documented as of this encounter
--- OUTSIDE RECORDS SUMMARY | 2024-10-23 12:06 | XMS_ITS | Encounter Summary ---
Author Organization [facility] Address [address] [place] [address] Care Team Providers Care Silk Screener Name Role Phone Marcelo Ortiz MD Primary Care Provider Unavail able Eloisa King MD Primary Care Provider Unavailable Ancelmo Whitney MD Primary Care Provider Tricia Simmons Unavailable Unavailable Juan A Cristobal MD Unavailable Unavailabl e Destiney Lara MD Unavailable [facility], Pcp Primary Care Provider Unavailabl e Encounter Details Date Type Department Care Team Description 07/11/2010 Production Control Clerk Report Medical Records [address] [place] [address] Slim Trammell [facility] [place] [address] Social History Tobacco Use Types Packs/Day Years [...] often do you attend chur ch or faith services? Never 09/16/2021 Do you belong to any clubs o r organizations such as jewish groups, unions, fraternal or athletic groups, or [...] on filedocumented in this encounter Care Teams Silk Screener Relationship Specialty Start Date End Date Marcelo Ortiz MD PCP - General 04/10/1999 05/16/15 Eloisa King MD PCP - General Internal Medicine 05/17/15 Ancelmo Whitney MD [address] [place] [address] PCP - General Internal Medicine 04/28/21 03/07/22 [facility], Pcp [address] [place] [address] PCP - General Internal Medicine 03/08/22 Tricia Simmons [address] [place] [address] Specialist Ophthalmology 09/16/21 Juan A Cristobal MD [address] [place] [address] Specialist Urology 09/16/21 Destiney Lara MD [address] [place] [address] Specialist Neurology 09/16/21 documented as of this encounter
--- OUTSIDE RECORDS SUMMARY | 2024-10-23 12:06 | XMS_ITS | Encounter Summary ---
Author Organization [facility], Address [address] [place] [address] Phone Care Team Providers Care Boiler Riveter Name Role Phone Stacy Awan MD Primary Care Provider [phone] Encounter Details Date Type Department Care Team (Late st Contact Info) Description 02/05/2024 Documentation Only [facility], [address] [address] [place], [place] [address] [place] [address] Social History Tobacco Use Types [...] Visit [facility] [address] [place] [address] Edgar Aguilar MD [address] [place] [address] documented as of this encounter Visit Diagnoses Not on filedocumented in this encounter Care Teams Boiler Riveter Relationship Specialty Start Date End Date Stacy Awan MD [address] [place] [address] PCP - General Internal Medicine 01/23/23 documented as of this encounter
--- OUTSIDE RECORDS SUMMARY | 2024-10-23 12:06 | XMS_ITS | Encounter Summary ---
Author Organization [facility] Address [address] [place] [address] Care Team Providers Care Supervisor Carbon Electrodes Name Role Phone Marcelo Ortiz MD Primary Care Provider Unavail able Eloisa King MD Primary Care Provider Unavailable Ancelmo Whitney MD Primary Care Provider [phone] Tricia Simmons Unavailable Unavailable Juan A Cristobal MD Unavailable Unavailabl e Destiney Lara MD Unavailable [facility], Pcp Primary Care Provider Unavailabl e Encounter Details Date Type Department Care Team Description 10/23/2014 Release of Information Medical Records [address] [place] [address] Abstract, Provider Social History Tobacco Use Types [...] often do you attend [facility] or yarsani services? Never 09/16/2021 Do [...] on filedocumented in this encounter Care Teams Supervisor Carbon Electrodes Relationship Specialty Start Date End Date Marcelo Ortiz MD PCP - General 04/10/1999 05/16/15 Eloisa King MD PCP - General Internal Medicine 05/17/15 Ancelmo Whitney MD [address] [place] [address] PCP - General Internal Medicine 04/28/21 03/07/22 [facility] 305 [place] [address] PCP - General Internal Medicine 03/08/22 Tricia Simmons [address] [place] [address] Specialist Ophthalmology 09/16/21 Juan A Cristobal MD [address] [place] [address] Specialist Urology 09/16/21 Destiney Lara MD [address] [place] [address] Specialist Neurology 09/16/21 documented as of this encounter
--- OUTSIDE RECORDS SUMMARY | 2024-10-23 12:06 | XMS_ITS | Encounter Summary ---
Author Organization [facility] Address [address] [place] [address] Care Team Providers Care Employee Relations Administrator Name Role Phone Marcelo Ortiz MD Primary Care Provider Unavail able Eloisa King MD Primary Care Provider Unavailable Ancelmo Whitney MD Primary Care Provider [phone] Tricia Simmons Unavailable Unavailable Juan A Cristobal MD Unavailable Unavailabl e Destiney Lara MD Unavailable [facility], Pcp Primary Care Provider Unavailabl e Encounter Details Date Type Department Care Team Description 06/08/2010 Hospital Medical Records [address] [place] [address] Alvin Turcios MD Social History Tobacco Use Types Packs/Day [...] often do you attend chur ch or denominational services? Never 09/16/2021 Do you belong to any clubs o r organizations such as catholic groups, unions, fraternal or athletic groups, or [...] on filedocumented in this encounter Care Teams Employee Relations Administrator Relationship Specialty Start Date End Date Marcelo Ortiz MD PCP - General 04/10/1999 05/16/15 Eloisa King MD PCP - General Internal Medicine 05/17/15 Ancelmo Whitney MD [address] [place] [address] PCP - General Internal Medicine 04/28/21 03/07/22 [facility], Pcp [address] [place] [address] PCP - General Internal Medicine 03/08/22 Tricia Simmons [address] [place] [address] Specialist Ophthalmology 09/16/21 Juan A Cristobal MD [address] [place] [address] Specialist Urology 09/16/21 Destiney Lara MD [address] [place] [address] Specialist Neurology 09/16/21 documented as of this encounter
--- OUTSIDE RECORDS SUMMARY | 2024-10-23 12:06 | XMS_ITS | Encounter Summary ---
Author Organization [facility] Address [address] [place] [address] Care Team Providers Care Police Patrol Lieutenant Name Role Phone Eloisa Kign MD Primary Care Provider Unavailable Ancelmo Whitney MD Primary Care Provider [phone] Tricia Simmons Unavailable Unavailable Juan A Cristobal MD Unavailable Unavailabl e Destiney Lara MD Unavailable [facility], Pcp Primary Care Provider Unavailabl e Encounter Details Date Type Department Care Team Description 07/08/2015 Pt. Non Urgent Medic al Question Adult Medicine - [address] [address] Eloisa King MD Social History Tobacco Use Types Packs/Day [...] 09/16/2021 How often do you attend [facility] or congregation services? Never 09/16/2021 Do you belong to any clubs o r organizations such as sabianist groups, unions, fraternal or athletic groups, or [...] on file documented as of this encounter Progress Notes * Amy Farmer L.P.N. - 07/08/2015 4:36 PM ESTFrom: Belkis Beauchamp To: Eloisa King MD Sent: 07/08/2015 4:24 PM EST Subject: Belkis Beauchamp's MY Chart Belkis's My Chart should not be sent to me, Delroy Beauchamp ( [email or web address] When I open your email to me I see it's my 's My Chart. Please send it to her email = [email or web address]. Thank you. documented in this encounter Plan of Treatment Not on file documented as of this encounter Visit Diagnoses Not on filedocumented in this encounter Care Teams Police Patrol Lieutenant Relationship Specialty Start Date End Date Eloisa King MD PCP - General Internal Medicine 05/17/15 Ancelmo Whitney MD [address] [facility] [place] [address] PCP - General Internal Medicine 04/28/21 03/07/22 Akbar, Daniel [address] [facility] [place] [address] PCP - General Internal Medicine 03/08/22 Tricia Simmons [address] [facility] [place] [address] Specialist Ophthalmology 09/16/21 Juan A Cristobal MD [address] [place] [address] Specialist Urology 09/16/21 Destiney Lara MD [address] [place] [address] Specialist Neurology 09/16/21 documented as of this encounter
--- OUTSIDE RECORDS SUMMARY | 2024-10-23 12:06 | XMS_ITS | Clinical Summary ---
Author Organization [facility], Address [address] [place] [address] [place] [address] Phone Care Team Providers Care Operating Systems Specialist Name Role Phone Stacy Awan MD Primary Care Provider [phone] Allergies No known active allergies Medications brimonidine [...] 05/15/20 24 Active tacrolimus (PROGRAF) 1 MG capsuleIndications:Ch ronic kidney disease, stage 2 (mild),History of renal [...] 90 tablet 3 08/26/19 25 026 Active ergocalciferol (Drisdol) 1.25 MG (42544 UT) capsule Take 1 capsule (50,000 Units total) by mouth 1 (one) time per week for 8 doses 8 capsule 09/06/19 25 025 Active Active Problems Problem Noted Date Diagnosed Date [...] 3 and she has been referd to [facility] for coiling Mri october 2009-rt middle cereal [...] Encounters Date Type Department Care Team Description 10/21/2024 Office Communication [facility] [address] [place] [address] Serenity Salcedo [place] 10/20/2024 Orders Only [facility] [address] [place] [address] Sarah Westfall [place] Secondary hyperparathyroidism of renal origin (HCC) (Primary Dx); History of immunosuppressive therapy; History of renal transplant; Chronic kidney disease, stage 2 (mild); Other iron deficiency anemia; Other specified hypoparathyroidism (HCC); Albuminuria, not otherwise specified 09/05/2024 10:00 AM EDT Office Visit [facility] [address] [place] [address] Jose Manuel Swift MD Secondary hyperparathyroidism of renal origin (HCC) (Primary Dx); History of immunosuppressive therapy; History of renal transplant; Chronic kidney disease, stage 2 (mild) from Last 3 Months Immunizations Immunization Administration Dates Next Due Hep B, Unspecified [...] Sign Reading Time Taken Comments Blood Pressure 124/62 09/05/2024 10:09 AM EDT Pulse 77 04/22/2019 12:00 PM EST Temperature [...] Visit [facility] [place] [address] [place] [address] Edgar Aguilar MD [address] [place] [address] Health Maintenance Due Date Last Done Comments Pneumococcal Vaccine: 50+ Years (3 of 3 - PCV) 03/04/2016 03/04/2015, 09/07/2014, 06/07/2007 Influenza Vaccine (Season Ended) 2025 02/17/2020, 03/20/2018, 03/01/2017, Additional history exists Hepatitis B Vaccine Aged Out 04/24/2005, 04/24/2005, 11/17/2004, Additional history exists No longer eligible based on patient's age to complete this topic Pneumococcal Vaccine: Peds (0 to 5 Years) and At-Risk Patients (6 to 49 Years) Discontinued 03/04/2015, 09/07/2014, 06/07/2007 Procedures Procedure Name Priority Date/Time Associated Diagnosis Comments IRON PANEL (FE, TIBC, TSAT) Routine 09/03/2024 10:33 AM EDT Chronic kidney disease, stage 2 (mild) History of renal transplant History of immunosuppressive therapy Secondary hyperparathyroidism of renal origin (HCC) Other iron deficiency anemia Albuminuria, not otherwise specified FERRITIN Routine 09/03/2024 10:33 AM EDT Chronic kidney disease, stage 2 (mild) History of renal transplant History of immunosuppressive therapy Secondary hyperparathyroidism of renal origin (HCC) Other iron deficiency anemia Albuminuria, not otherwise specified CREATINE KINASE Routine 09/03/2024 10:33 AM EDT Chronic kidney disease, stage 2 (mild) History of renal transplant History of immunosuppressive therapy Secondary hyperparathyroidism of renal origin (HCC) Other iron deficiency anemia Albuminuria, not otherwise specified ALT Routine 09/03/2024 10:33 AM EDT Chronic kidney disease, stage 2 (mild) History of renal transplant History of immunosuppressive therapy Secondary hyperparathyroidism of renal origin (HCC) Other iron deficiency anemia Albuminuria, not otherwise specified AST Routine 09/03/2024 10:33 AM EDT Chronic kidney disease, stage 2 (mild) History of renal transplant History of immunosuppressive therapy Secondary hyperparathyroidism of renal origin (HCC) Other iron deficiency anemia Albuminuria, not otherwise specified CBC AND DIFFERENTIAL Routine 09/03/2024 10:33 AM EDT Chronic kidney disease, stage 2 (mild) History of renal transplant History of immunosuppressive therapy Secondary hyperparathyroidism of renal origin (HCC) Other iron deficiency anemia Albuminuria, not otherwise specified RENAL FUNCTION PANEL Routine 09/03/2024 10:33 AM EDT Chronic kidney disease, stage 2 (mild) History of renal transplant History of immunosuppressive therapy Secondary hyperparathyroidism of renal origin (HCC) Other iron deficiency anemia Albuminuria, not otherwise specified MYCOPHENOLIC ACID AND METABO. Routine 09/03/2024 10:33 AM EDT Chronic kidney disease, stage 2 (mild) History of renal transplant History of immunosuppressive therapy Secondary hyperparathyroidism of renal origin (HCC) Other iron deficiency anemia Albuminuria, not otherwise specified TACROLIMUS, HIGHLY SENSITIVE, LC/MS/MS Routine 09/03/2024 10:33 AM EDT Chronic kidney disease, stage 2 (mild) History of renal transplant History of immunosuppressive therapy Secondary hyperparathyroidism of renal origin (HCC) Other iron deficiency anemia Albuminuria, not otherwise specified from Last 3 Months Results * Tacrolimus, Highly Sensitive, LC/MS/MS (09/03/2024 10:33 AM EDT) [facility] Tacrolimus by Immunoassay 5.1 5.0 - 20.0 ng/mL [facility] Comment: Detection Limit = 0.8 ng/mL Target steady state trough concentration for Tacrolimus varies based on type of organ transplant immunosuppressive protocol and other patient specific factors. ??Tacrolimus trough concentrations should be interpreted in conjunction with clinical assessments of rejection and tolerability. ??Values obtained with different assay methods cannot be used interchangeably due to differences in assay methods and cross-reactivity with metabolites, nor should correction factors be applied. ??Therefore, consistent use of one assay for individual patients is recommended. Tacrolimus assay performed by [employer]. ? Please note reference interval change [facility] will offer rebaseline testing (Test No. [id number]) through October 08, 2024. ??The rebaseline test will include results from both the current method (Folloyu) and the new method (Cristofer). ??All test results indicate the gerontology aide of the test on the laboratory report. ??The rebaseline test for tacrolimus immunoassay is charged at the [place] for the new test; the test for the retiring method is performed at no additional charge. 09/03/2024 10:3 3 AM EDT 09/03/2024 Edgar Aguilar MD LAB BLOOD ORDERABLES Final Result Performing Organization Address City/[facility]/ZIP Co de Phone Number [facility] [address] [place] [address] * Mycophenolic Acid and Metabo. (09/03/2024 10:33 AM EDT) Mycophenolic Acid 2.0 1.0 - 3.5 ug/mL [facility] Mycophenolic Acid Glucuronide 18 15 - 125 ug/mL [facility] Blood (Blood, Venous) 09/03/2024 10:33 AM EDT 09/03/2024 Narrative [facility] - 09/06/2024 3:05 PM EDT Test(s) 557049-Uhgtbjbfcipj Acid; 476241- Mycophenolic Acid Glucuronide was developed and its performance characteristics determined by [facility]. It has not been cleared or approved by the Food and Drug Administration. Edgar Aguilar MD LAB BLOOD ORDERABLES Final Result Performing Organization Address City/[facility]/ZIP Co de Phone Number [facility] [address] [place] [phone] * Iron Panel (Fe, TIBC, TSAT) (09/03/2024 10:33 AM EDT) TIBC 251 250 - 450 ug/dL [facility] UIBC 179 118 - 369 ug/dL [facility] Iron 72 27 - 139 ug/dL [facility] Iron Saturation (TSat) 29 15 - 55 % [facility] Blood (Blood, Venous) 09/03/2024 10:33 AM EDT 09/03/2024 Edgar Aguilar MD LAB BLOOD ORDERABLES Final Result [facility] [address] [place] [address] * (ABNORMAL) CBC and Differential (09/03/2024 10:33 AM EDT) WBC 8.3 3.4 - 10.8 x10E3/uL [facility] RBC 4.53 3.77 - 5.28 x10E6/uL [facility] Hemoglobin 14.0 11.1 - 15.9 g/dL [facility] Hematocrit 44.0 34.0 - 46.6 % [facility] MCV 97 79 - 97 fL [facility] MCH 30.9 26.6 - 33.0 pg [facility] MCHC 31.8 31.5 - 35.7 g/dL [facility] RDW 12.6 11.7 - 15.4 % [facility] Platelets 250 150 - 450 x10E3/uL [facility] Neutrophils Relative 50 Not Estab. % [facility] Lymphocytes Relative 37 Not Estab. % [facility] Monocytes 7 Not Estab. % [facility] Eosinophils Relative 5 Not Estab. % [facility] Basophils Relative 1 Not Estab. % [facility] Neutrophils Absolute 4.1 1.4 - 7.0 x10E3/uL [facility] Lymphocytes Absolute 3.1 0.7 - 3.1 x10E3/uL [facility] Monocytes Absolute 0.6 0.1 - 0.9 x10E3/uL [facility] Eosinophils Absolute 0.5(H) 0.0 - 0.4 x10E3/uL [facility] Basophils Absolute 0.0 0.0 - 0.2 x10E3/uL [facility] Immature Granulocytes 0 Not Estab. % [facility] Immature Grans (Absolute) 0.0 0.0 - 0.1 x10E3/uL [facility] Blood (Blood, Venous) 09/03/2024 10:33 AM EDT 09/03/2024 Edgar Aguilar MD LAB BLOOD ORDERABLES Final Result [facility] [address] [place] [address] * ALT (09/03/2024 10:33 AM EDT) ALT (SGPT) 16 0 - 32 IU/L [facility] Blood (Blood, Venous) 09/03/2024 10:33 AM EDT 09/03/2024 Edgar Aguilar MD LAB BLOOD ORDERABLES Final Result [facility] [address] [place] [address] * AST (09/03/2024 10:33 AM EDT) AST (SGOT) 22 0 - 40 IU/L [facility] Blood (Blood, Venous) 09/03/2024 10:33 AM EDT 09/03/2024 Edgar Aguilar MD LAB BLOOD ORDERABLES Final Result Performing Organization Address City/[facility]/ZIP Co de Phone Number [facility] [address] [place] [address] * (ABNORMAL) Ferritin (09/03/2024 10:33 AM EDT) Ferritin 494(H) 15 - 150 ng/mL [facility] Blood (Blood, Venous) 09/03/2024 10:33 AM EDT 09/03/2024 Result [facility] Edgar Aguilar MD LAB BLOOD ORDERABLES Final Result Performing Organization Address [facility] Co de Phone Number [facility] [address] [place] [address] * CK (09/03/2024 10:33 AM EDT) Creatine Kinase (CK/CPK) 74 32 - 182 U/L [facility] Blood (Blood, Venous) 09/03/2024 10:33 AM EDT 09/03/2024 Edgar Aguilar MD LAB BLOOD ORDERABLES Final Result Performing Organization Address City/[facility]/ZIP Co de Phone Number [facility] [address] [place] [address] * (ABNORMAL) Renal Function Panel (09/03/2024 10:33 AM EDT) Glucose 115(H) 70 - 99 mg/dL [facility] BUN 30(H) 8 - 27 mg/dL [facility] Creatinine 0.95 0.57 - 1.00 mg/dL [facility] eGFR CKD-EPI CR 2020 61 >59 mL/min/1.7 3 [facility] BUN/Creatinine Ratio 32(H) 12 - 28 [facility] Sodium 139 134 - 144 mmol/L [facility] Potassium 4.4 3.5 - 5.2 mmol/L [facility] Chloride 102 96 - 106 mmol/L [facility] Bicarbonate (CO2) 21 20 - 29 mmol/L [facility] Calcium 8.4(L) 8.7 - 10.3 mg/dL [facility] Albumin 4.1 3.8 - 4.8 g/dL [facility] Phosphorus 4.1 3.0 - 4.3 mg/dL [facility] Blood (Blood, Venous) 09/03/2024 10:33 AM EDT 09/03/2024 Edgar Aguilar MD LAB BLOOD ORDERABLES Final Result [facility] [address] [place] [address] from Last 3 Months Insurance Medicare [facility] Care Teams Operating Systems Specialist Relationship Specialty Start Date End Date Stacy Awan MD [address] [place] [address] PCP - General Internal Medicine 01/23/23
--- OUTSIDE RECORDS SUMMARY | 2024-10-23 12:06 | XMS_ITS | Encounter Summary ---
Author Organization [facility] Address [address] [place] [address] Care Team Providers Care Wire Spooler Name Role Phone Eloisa King MD Primary Care Provider Unavailable Ancelmo Whitney MD Primary Care Provider [phone] Tricia Simmons Unavailable Unavailable Juan A Cristobal MD Unavailable Unavailabl e Destiney Lara MD Unavailable [facility], Pcp Primary Care Provider Unavailabl e Encounter Details Date Type Department Care Team Description 09/17/2018 Manager Acquisition Report Medical Records [address] [place] [address] Stanley Whitney MD Social History Tobacco Use Types Packs/Day [...] How often do you attend [facility] or zoroastrian services? Never 09/16/2021 Do you [...] on filedocumented in this encounter Care Teams Wire Spooler Relationship Specialty Start Date End Date Eloisa King MD PCP - General Internal Medicine 05/17/15 Ancelmo Whitney MD [address] [place] [address] PCP - General Internal Medicine 04/28/21 03/07/22 [facility], Pcp [address] [place] [address] PCP - General Internal Medicine 03/08/22 Tricia Simmons [address] [place] [address] Specialist Ophthalmology 09/16/21 Juan A Cristobal MD [address] [place] [address] Specialist Urology 09/16/21 Destiney Lara MD [address] [place] [address] Specialist Neurology 09/16/21 documented as of this encounter
--- OUTSIDE RECORDS SUMMARY | 2024-10-23 12:06 | XMS_ITS | Encounter Summary ---
Author Organization [facility] Address [address] [place] [address] Care Team Providers Care Produce Associate Name Role Phone Marcelo Ortiz MD Primary Care Provider Unavail able Eloisa King MD Primary Care Provider Unavailable Ancelmo Whitney MD Primary Care Provider Tricia Simmons Unavailable Unavailable Juan A Cristobal MD Unavailable Unavailabl e Destiney Lara MD Unavailable [facility], Pcp Primary Care Provider Unavailabl e Encounter Details Date Type Department Care Team Description 10/28/2014 Internship Report Medical Records [address] [place] [address] Destiney Lara [address] [place] [address] Social History Tobacco Use Types Packs/Day [...] often do you attend chur ch or scientology services? Never 09/16/2021 Do you belong to any clubs o r organizations such as latter-day groups, unions, fraternal or athletic groups, or [...] on filedocumented in this encounter Care Teams Produce Associate Relationship Specialty Start Date End Date Marcelo Ortiz MD PCP - General 04/10/1999 05/16/15 Eloisa King MD PCP - General Internal Medicine 05/17/15 Ancelmo Whitney MD [address] [place] [address] PCP - General Internal Medicine 04/28/21 03/07/22 [facility], Pcp [address] [place] [address] PCP - General Internal Medicine 03/08/22 Tricia Simmons [address] [place] [address] Specialist Ophthalmology 09/16/21 Juan A Cristobal MD [address] [place] [address] Specialist Urology 09/16/21 Destiney Lara MD [address] [place] [address] Specialist Neurology 09/16/21 documented as of this encounter
--- OUTSIDE RECORDS SUMMARY | 2024-10-23 12:06 | XMS_ITS | Encounter Summary ---
Author Organization [facility] Address [address] [place] [address] Care Team Providers Care Jewelry Department Supervisor Name Role Phone Eloisa King MD Primary Care Provider Unavailable Ancelmo Whitney MD Primary Care Provider [phone] Triica Simmons Unavailable Unavailable Juan A Cristobal MD Unavailable Unavailabl e Destiney Lara MD Unavailable [facility], Pcp Primary Care Provider Unavailabl e Encounter Details Date Type Department Care Team Description 08/24/2015 Animal Killer Report Medical Records [address] [place] [address] Emma Hodge MD Social History Tobacco Use [...] often do you attend [facility] or anabaptist services? Never 09/16/2021 Do you belong to [...] place to sleep or slept in a prison (including now)? No 09/16/2021 Sex Assigned at Date Recorded Not on file documented as of this encounter Plan of Treatment Not on file documented as of this encounter Visit Diagnoses Not on filedocumented in this encounter Care Teams Jewelry Department Supervisor Relationship Specialty Start Date End Date Eloisa King MD PCP - General Internal Medicine 05/17/15 Ancelmo Whitney MD [address] [place] [address] PCP - General Internal Medicine 04/28/21 03/07/22 [facility] Pcp [address] [place] [address] PCP - General Internal Medicine 03/08/22 Tricia Simmons [address] [place] [address] Specialist Ophthalmology 09/16/21 Juan A Cristobal MD [address] [place] [address] Specialist Urology 09/16/21 Destiney Lara MD [address] [place] [address] Specialist Neurology 09/16/21 documented as of this encounter
--- OUTSIDE RECORDS SUMMARY | 2024-10-23 12:06 | XMS_ITS | Encounter Summary ---
Author Organization [facility] Address [address] [place] [address] Care Team Providers Care Farm Worker Name Role Phone Marcelo Ortiz MD Primary Care Provider Unavail able Eloisa King MD Primary Care Provider Unavailable Ancelmo Whitney MD Primary Care Provider [phone] Tricia Simmons Unavailable Unavailable Juan A Cristobal MD Unavailable Unavailabl e Destiney Lara MD Unavailable [facility], Pcp Primary Care Provider Unavailabl e Encounter Details Date Type Department Care Team Description 06/13/2010 Hospital Medical Records [address] [place] [address] Yolie Vivas Social History Tobacco Use Types [...] any clubs o r organizations such as buddhism groups, unions, fraternal or athletic groups, or [...] on filedocumented in this encounter Care Teams Farm Worker Relationship Specialty Start Date End Date Marcelo Ortiz MD PCP - General 04/10/1999 05/16/15 Eloisa King MD PCP - General Internal Medicine 05/17/15 Ancelmo Whitney MD [address] [place] [address] PCP - General Internal Medicine 04/28/21 03/07/22 [facility], Pcp [address] [place] [address] PCP - General Internal Medicine 03/08/22 Tricia Simmons [address] [place] [address] Specialist Ophthalmology 09/16/21 Juan A Cristobal MD [address] [place] [address] Specialist Urology 09/16/21 Destiney Lara MD [address] [place] [address] Specialist Neurology 09/16/21 documented as of this encounter
--- OUTSIDE RECORDS SUMMARY | 2024-10-23 12:06 | XMS_ITS | Encounter Summary ---
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 Never 09/16/2021 Do you belong to any clubs o r organizations such as yarsanism groups, unions, fraternal or athletic groups, or [...] place to sleep or slept in a fpc (including now)? No 09/16/2021 Sex Assigned at Date Recorded Not on file documented as of this encounter Plan of Treatment Not on file documented as of this encounter Visit Diagnoses Not on filedocumented in this encounter Care Teams Consumer Banker Relationship Specialty Start Date End Date Eloisa King MD PCP - General Internal Medicine 05/17/15 Ancelmo Whitney MD [address] [place] [address] PCP - General Internal Medicine 04/28/21 03/07/22 [facility], Pcp [address] [place] [address] PCP - General Internal Medicine 03/08/22 Tricia Simmons [address] [place] [address] Specialist Ophthalmology 09/16/21 Juan A Cristobal MD [address] [place] [address] Specialist Urology 09/16/21 Destiney Lara MD [address] [place] [address] Specialist Neurology 09/16/21 documented as of this encounter
--- OUTSIDE RECORDS SUMMARY | 2024-10-23 12:06 | XMS_ITS | Encounter Summary ---
Author Organization [facility] [place] [facility] [place], Address [address] [place] [address] Phone Care Team Providers Care Occ Therapist Name Role Phone Stacy Awan MD Primary Care Provider [phone] Encounter Details Date Type Department Care Team (Late st Contact Info) Description 01/17/2024 Documentation Only [facility], [address] [place] [address] [place], [place] [address] [place] [address] Social History Tobacco Use Types [...] Visit [facility] [address] [place] [address] Edgar Aguilar MD [address] [place] [address] documented as of this encounter Visit Diagnoses Not on filedocumented in this encounter Care Teams Occ Therapist Relationship Specialty Start Date End Date Stacy Awan MD [address] [place] [address] PCP - General Internal Medicine 01/23/23 documented as of this encounter
--- OUTSIDE RECORDS SUMMARY | 2024-10-23 12:06 | XMS_ITS | Clinical Summary ---
Author Organization [address] Address [address] [place] [phone] Phone Care Team Providers Care Mid Level Clinician Name Role Phone Ant Brewer NP Primary Care Provider [phone] Surgical History Surgery Date Site/Laterality Comments SALPINGOOPHORECTOMY Right PROCEDURE: [place] LAPAROSCOPY W/RMVL ADNEXAL STRUCTURES; COMMENT: cystectomy OTHER SURGICAL HISTORY 2009 PROCEDURE: NC RENAL ALTRNSPLJ IMPLTJ GRF W/O GANG KNIFE FISH CHOPPER NEPHRECTOMY; COMMENT: X2 BACK SURGERY 2008 PROCEDURE: HISTORICAL BACK SURGERY COLONOSCOPY 08/25/05 PROCEDURE: HISTORICAL COLONOSCOPY; COMMENT: tics OTHER SURGICAL HISTORY 09/08/15 PROCEDURE: COLON CA SCRN NOT HI RSK IND; COMMENT: tics; would not repeat OTHER SURGICAL HISTORY Bilateral PROCEDURE: HISTORICAL GLAUCOMA OTHER SURGICAL HISTORY PROCEDURE: NC PERITONEAL DIALYSIS PLAN DOCUMENTED OTHER SURGICAL HISTORY [...] - PCV) 09/08/2015 09/07/2014, 06/07/2007 RSV Immunization Adult Patients (1 - 1-dose 75+ series) 01/30/2019 Cholesterol Screening (Lipid Panel) 05/14/2022 Depression Screening 05/14/2022 Falls Risk Assessment 05/14/2022 Medicare Annual Wellness Visit 05/14/2022 Osteoporosis Screening (Bone Density Screening) 05/14/2022 Social Influencers of Health Screening 05/14/2022 COVID-19 Vaccine ( season) 2024 08/29/2021, 01/28/2021, 08/02/2020, Additional history exists Influenza Vaccine (Season Ended) 2025 02/27/2022, 04/04/2021, 02/17/2020, Additional history exists DTaP,Tdap,and Td [...] age to complete this topic Meningococcal B Vaccine Aged Out No l onger eligible based on patient's age to complete this topic RSV Immunization Patients Under 20 months Aged Out No longer eligible based on patient's age to complete this topic Varicella Vaccines Aged Out No longer eligible based on patient's age to complete this topic Insurance MEDICARE Care Teams Mid Level Clinician Relationship Specialty Start Date End Date Ant Brewer NP [facility] [address] [place] [address] PCP - General Nurse Practitioner 07/09/24
--- OUTSIDE RECORDS SUMMARY | 2024-10-23 12:06 | XMS_ITS | Encounter Summary ---
Author Organization [facility] Address [address] [place] [address] Care Team Providers Care Filer Repairer Name Role Phone Eloisa King MD Primary Care Provider Unavailable Ancelmo Whitney MD Primary Care Provider Tricia Simmons Unavailable Unavailable Juan A Cristobal MD Unavailable Unavailabl e Destiney Lara MD Unavailable [facility], Pcp Primary Care Provider Unavailabl e Encounter Details Date Type Department Care Team Description 06/26/2019 Sports Statistician Report Medical Records [address] [place] [address] Social History Tobacco Use Types Packs/Day Years [...] week 09/16/2021 How often do you attend memorial healthcare or adventism services? Never 09/16/2021 Do you belong to any clubs o r organizations such as adventist groups, unions, fraternal or athletic groups, or [...] on filedocumented in this encounter Care Teams Filer Repairer Relationship Specialty Start Date End Date Eloisa King MD PCP - General Internal Medicine 05/17/15 Ancelmo Whitney MD [address] [place] [address] PCP - General Internal Medicine 04/28/21 03/07/22 Akbar, Daniel [address] [place] [address] PCP - General Internal Medicine 03/08/22 Tricia Simmons [address] [place] [address] Specialist Ophthalmology 09/16/21 Juan A Cristobal MD [address] [place] [address] Specialist Urology 09/16/21 Destiney Lara MD [address] [place] [address] Specialist Neurology 09/16/21 documented as of this encounter
== END 2024-10-23 11:50 | disposition home or self-care (01) ==
LOC: HO.HUSH 10:56
PROVIDERS: PCP Internal Medicine; Visit Provider Urology
DX: N32.81 Overactive bladder (principal); N95.2 Postmenopausal atrophic vaginitis; N39.0 Urinary tract infection, site not specified; Z94.0 Kidney transplant status; Q61.3 Polycystic kidney, unspecified
CPT/HCPCS: 99213

== ENCOUNTER → 2024-10-23 10:56 | Outpatient (BNVA) | payer MEDICARE, OTHER, SELFPAY | PROVIDERS: PCP Internal Medicine; Visit Provider Urology | DX: Z13.89 Encounter for screening for other disorder (principal) ==